=== PATIENT | female | born 1995 | race Caucasian/White ===

== ENCOUNTER 2024-07-07 11:10 | Inpatient (IN) ==
--- NOTE | 2024-07-07 11:25 | Emergency Department Note ---
Impression & Plan Starvation ketoacidosis, Nausea & vomiting, Unintentional weight loss, Cavernoma ED Provider Note CHIEF COMPLAINT: Nausea, weight loss HISTORY OF PRESENTING ILLNESS: This 28-year-old female patient presents to the emergency department with her mother for evaluation of nausea and weight loss. The patient states that she has daily nausea and has been unable to eat or drink. She has lost approximately 30 pounds in the past 3 weeks. She was diagnosed with COVID in late January and has had intermittent nausea since that time. However, the nausea has gotten much worse. Significantly increased symptoms over the past 2 weeks. She has had bilious vomiting as well. She denies any diarrhea. She denies any urinary symptoms. She denies any fevers, cough, or URI symptoms. Denies any head injury or trauma. The patient was seen by GI as an outpatient today and referred to the ER for admission. The patient's mother is a nurse and states that she has been giving her IV fluids at home the past couple days without improvement as well. She denies a history of previous GI problems. No previous abdominal surgeries. LMP 1 week ago. She denies concerns for and has had multiple negative tests recently. I reviewed the patient's GI office visit note from today. The patient has tried Zofran, Reglan, and Phenergan without improvement of her symptoms. GI was concerned about her nutritional status because of her lack of oral intake. The patient was sent to the ER for admission for observation, hydration, nutritional support, and to begin a diagnostic workup. Per the GI office visit note, the patient was seen at [facility] ER and had a noncontrast CT scan which was reported by the patient as normal. Apparently no blood work had been performed. The patient also tried a trial of [id number] antacids without relief. The patient states that she feels hungry, but is unable to eat or drink anything because of the nausea and vomiting. The patient states that she has not had any other workup performed other than the [facility] ER visit and outpatient ER visit. REVIEW OF SYSTEMS: See HPI for pertinent positives and pertinent negatives. ALLERGIES: Bupropion - nausea MEDICATIONS: None PAST MEDICAL HISTORY: Denies pertinent past medical or pertinent past surgical history other than the current symptoms. PHYSICAL EXAM: VITALS: Vitals are noted on the nurse's note and reviewed by myself. GENERAL: The patient is thin and almost cachectic appearing. She also appears nauseous, but non toxic, in no acute distress, non-diaphoretic. SKIN: Capillary refill <2 sec. EYES: Eyes are sunken. PERRLA. EOMI. Conjunctivae without injection, sclerae without icterus. NOSE: Patent without discharge. MOUTH: Mucous membranes dry. Uvula midline. Airway patent. NECK: Supple without nuchal rigidity. HEART: Regular rate and rhythm without murmurs gallops or rubs. LUNGS: Clear to auscultation bilaterally without wheezes, rales or rhonchi. No retractions or accessory muscle use. ABDOMEN: Positive bowel sounds x 4. Normal tympanic percussion. Soft, nontender to palpation. No masses or hepatosplenomegaly. Knight sign negative. No CVA tenderness. No guarding, rigidity, or rebound tenderness. No focal RLQ or LLQ tenderness. MUSCULOSKELETAL: No gross musculoskeletal defects. NEURO: Patient was alert and oriented. Normal mental status exam. No focal neurological deficits. DIFFERENTIAL DIAGNOSIS: Differential diagnosis includes malignancy, intracranial bleed, intracranial abnormality, parasite, celiac disease, hepatitis, pancreatitis, cholecystitis, cholelithiasis, appendicitis, kidney stone, pyelonephritis, UTI, gastritis, gastroenteritis, mesenteric adenitis, obstruction, constipation, hernia, abdominal abscess, perforation, diverticulitis, IBD, ischemic colitis, abdominal aortic aneurysm, , ectopic , ovarian cyst, ovarian torsion, acute salpingitis, or others. ED COURSE AND MEDICAL DECISION MAKING: HISTORY FROM INDEPENDENT HISTORIAN: Additional history obtained from the patient's mother MEDICATIONS GIVEN: Benadryl 25 mg IV, Reglan 10 mg IV, Pepcid 20 mg IV. 1.5 L normal saline solution bolus. GI cocktail. MONITOR: Continuous vitamin manager: Order was placed for continuous vitamin manager. Patient was placed on the vitamin manager and continuous pulse ox. Patient was noted to be in normal sinus rhythm at an initial rate of 70 bpm per my interpretation. EKG: EKG was interpreted by myself as normal sinus rhythm at 75 bpm with no acute ST or T wave changes. INTERPRETATION OF LABS: I interpreted the labs with full lab results as below in the lab section of this note. Laboratory results pertinent to the emergent complaint are discussed in the MDM section below. The patient was advised to follow up with their PCP and/or specialist(s) for further outpatient monitoring and management of any abnormal results. INTERPRETATION OF IMAGING: Imaging studies were interpreted by myself and read by radiology as per the imaging section of this note. The patient was advised to follow up with their PCP and/or specialist(s) for further outpatient management of any non-emergent abnormal findings. CT scan of the head without contrast showed no acute intracranial abnormality. 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 This could be confirmed with him nonemergent follow- up MRI of the brain with and without contrast. CT scan of the chest with IV contrast was negative for malignancy or other acute abnormalities. CT scan of the abdomen pelvis with IV contrast showed moderate fecal retention of the right hemicolon, but no other acute intra-abdominal or intrapelvic abnormality and no evidence of malignancy. EXTERNAL RECORDS REVIEWED: I reviewed the patient's outpatient GI office visit note from earlier today as summarized above. CONSULTATIONS: Dr. Mariscal of GI. On-call hospitalist. MDM SUMMARY: I examined the patient. The patient presents to the emergency department for evaluation of prolonged nausea and bilious vomiting as well as significant unintentional weight loss. The patient states that she had COVID in late January and has had intermittent nausea and vomiting since that time. However, over the past couple months the nausea and vomiting has gotten worse. Over the past 2 weeks she has been unable to keep anything down. She is lost approximately 30 pounds in the past 3 weeks per patient. The patient had a noncontrast CT scan at [facility] that was normal per patient. The patient denies any other formal outpatient workup of her symptoms. She saw GI as an outpatient today who referred her to the ER for further workup and admission. On exam the patient does appear nauseous, thin, and dehydrated. The patient's mother states that she has been giving her IV fluids at home since she is a nurse. Therefore, I only started with 500 mL normal saline solution bolus prior to obtaining workup results. An IV lock was placed and labs were drawn. White blood cell count normal at 4.89. Hemoglobin normal at 13.4. Platelet count normal at 273. PT/INR were normal. Sodium elevated at 147, chloride elevated at 117, bicarb low at 15, anion gap elevated at 15, albumin normal at 4.9, but globulin low at 2.1. Albumin/globulin ratio high at 2.3. CMP otherwise normal. Lipase normal. TSH normal. Magnesium normal. Phosphorus normal. Serum hCG negative. Urinalysis with 1+ protein and 4+ ketones, but no evidence for UTI. Lyme disease screen negative. CT scan of the head without contrast showed no acute intracranial abnormality. 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 This could be confirmed with him nonemergent follow-up MRI of the brain with and without contrast. CT scan of the chest with IV contrast was negative for malignancy or other acute abnormalities. CT scan of the abdomen pelvis with IV contrast showed moderate fecal retention of the right hemicolon, but no other acute intra-abdominal or intrapelvic abnormality and no evidence of malignancy. The patient is acidotic which is likely secondary to her dehydration and inability to eat. She has had significant nausea and vomiting as well as a significant unintentional weight loss. The patient only had minimal improvement of her symptoms with the above treatment. I spoke with Dr. Mariscal of GI and confirmed the recommendation for admission for further evaluation and treatment of this patient. I spoke with the on-call hospitalist who agreed to admit the patient for further evaluation and treatment. Please refer to their dictation for further details. The patient's care was transferred in stable condition. 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 Past Med/Surg History Problem List (Updated 07/07/24 @ 19:29 by Beth Mcclain PA-C) Cavernoma (Acute) Unintentional weight loss (Acute) Nausea & vomiting (Acute) Malnutrition Starvation ketoacidosis (Acute) Nausea [id number] condition Chronic rhinitis Acid reflux (Acute) Acne (Acute) Anxiety disorder (Acute) Depression (Acute) Vitamin D deficiency (Acute) Chest pressure Palpitations Surgical History History of wisdom tooth extraction History of adenoidectomy Family History Mother Anxiety Depression Diabetes Grandfather Cancer Asthma Grandfather Myocardial infarction Cardiac disorder Sister Asthma Family/Other Hypertension Cardiac disorder Social History Smoking Status: Former smoker Second Hand Exposure: No; Do You Dip or Chew Tobacco: No; Hx Alcohol Use: Yes Hx Substance Use: No Preferred Language: Sami marital status: Single Current Living Situation: Alone current occupational status: employed Feels Safe at Home: Yes Childhood Exposure to Second-Hand Smoke: Yes Diet: regular caffeine: Yes Dental Care, Regularly: Yes Physical Activity Frequency: Does not Exercise Seatbelt Use: always Sunscreen Use: Yes Assistive Devices: Glasses Allergies Allergies Allergy/AdvReac Type Severity Reaction Status Date / Time bupropion AdvReac Mild Nausea Verified 07/07/24 17:48 Home Meds Previous Rx's Medication Instructions Recorded azelastine 137 mcg (0.1 %) nasal 2 spray intranasal BID PRN nasal 12/31/23 spray congestion #30 mL fluticasone propionate 50 2 spray intranasal DAILY #16 grams 12/31/23 mcg/actuation nasal spray,suspension ipratropium bromide 21 mcg (0.03 2 spray intranasal TID PRN 12/31/23 %) nasal spray postnasal drip #30 mL promethazine 25 mg tablet 25 mg PO TID PRN nausea and 07/04/24 vomiting #30 tabs Results & Data (ED) Vital Signs Vital Signs - 24 hr 07/07/24 11:13 07/07/24 12:00 07/07/24 12:00 Temperature 36.7 C Temperature Source Oral Pulse Rate 85 82 Pulse Rate [Apical] 81 Pulse Rhythm [Apical] Regular Respiratory Rate 18 17 17 Respiratory Effort / Characteristics Non-Labored Spontaneous Non-Labored Spontaneous Respiratory Depth Normal Normal Respiratory Pattern Regular Blood Pressure 106/74 Blood Pressure [Left Arm] 147/83 H Blood Pressure Mean 84 Blood Pressure Mean [Left Arm] 104 Blood Pressure Position [Left Arm] Sitting Pulse Oximetry 97 100 100 Oxygen Delivery Method Room Air Room Air Room Air Sepsis Recent Fever Within 48 Hours No Sepsis New/Unexplained Change in Mental Status N/A Sepsis Action Taken by Nursing No Action Required 07/07/24 12:10 07/07/24 14:00 Temperature Temperature Source Pulse Rate 80 Pulse Rate [Apical] 92 H Pulse Rhythm [Apical] Respiratory Rate 18 Respiratory Effort / Characteristics Non-Labored Spontaneous Respiratory Depth Normal Respiratory Pattern Blood Pressure Blood Pressure [Left Arm] 108/82 Blood Pressure Mean Blood Pressure Mean [Left Arm] 90 Blood Pressure Position [Left Arm] Sitting Pulse Oximetry 99 Oxygen Delivery Method Room Air Sepsis Recent Fever Within 48 Hours Sepsis New/Unexplained Change in Mental Status Sepsis Action Taken by Nursing Laboratory Data 07/07/24 11:27 07/07/24 11:27 Lab Results 07/07/24 07/07/24 07/07/24 Range/Units 11:27 12:03 15:23 WBC 4.89 (4.8-10.8) K/ul RBC 4.44 (4.20-5.40) M/uL Hgb 13.4 (12.0-16.0) g/dl Hct 37.3 (37.0-47.0) % MCV 84.0 (80.0-100.0) fL MCH 30.2 (25.0-34.0) pg MCHC 35.9 (32.0-36.0) g/dL RDW Std Deviation 40.0 (36.4-46.3) fL RDW Coeff of Reuben 13.3 (11.5-14.5) % Plt Count 273 (130-400) K/uL MPV 10.4 (9.4-12.4) fL Immature Gran % (Auto) 0.2 % Neut % (Auto) 72.0 % Lymph % (Auto) 20.7 % [place] % (Auto) 6.7 % Eos % (Auto) 0.0 % Baso % (Auto) 0.4 % Neut # (Auto) 3.52 (1.40-6.50) K/uL Lymph # (Auto) 1.01 L (1.20-3.40) K/uL [place] # (Auto) 0.33 (0.11-0.59) K/uL Eos # (Auto) 0.00 (0.00-0.50) K/uL Baso # (Auto) 0.02 (0.00-0.20) K/uL Immature Gran # (Auto) 0.01 (0.01-0.20) K/uL PT 11.6 (9.0-12.0) Seconds INR 1.1 (0.9-1.1) VBG pH 7.28 L (7.36-7.41) VBG pCO2 24 L (38-50) mmHg VBG pO2 33 mmHg VBG HCO3 11 mmol/L VBG O2 Saturation < 60.0 % VBG Base Excess -13.6 mEq/L Sodium 147 H (136-145) mmol/L Potassium 3.5 (3.5-5.1) mmol/L Chloride 117 H (98-107) mmol/L Carbon Dioxide 15 L (21-32) mmol/L Anion Gap 15 H (3-11) BUN 8 (6-23) mg/dl Creatinine 0.61 (0.6-1.2) mg/dl Est Cr Clr Drug Dosing 124.3 ml/min eGFR 125.59 BUN/Creatinine Ratio 13.1 (10-20) Glucose 81 (70-99(Fasting)) mg/dl Calcium 9.4 (8.6-10.3) mg/dl Phosphorus 2.8 2.3 L (2.5-4.9) mg/dl Magnesium 2.0 (1.7-2.4) mg/dl Total Bilirubin 0.6 (0.2-1.0) mg/dl AST 13 (13-39) U/L ALT 15 (7-52) U/L Alkaline Phosphatase 40 (34-104) U/L Total Creatine Kinase 49 (26-192) U/L Troponin I High Sens < 2.3 (0-14) pg/ml Total Protein 7.0 (6.0-8.3) gm/dl Albumin 4.9 (3.4-5.0) gm/dl Globulin 2.1 L (2.5-4.0) gm/dl Albumin/Globulin Ratio 2.3 H (0.9-2) Lipase 49 (11-82) U/L TSH 0.612 (0.300-4.500) uIu/ml HCG, Qual Negative (Negative) Urine Color Yellow Urine Appearance Clear (Clear) Urine pH 6.0 (4.5-7.5) Ur Specific [place] 1.025 (1.000-1.030) Urine Protein 1+ H (Negative) Urine Glucose (UA) Negative (Negative) Urine Ketones 4+ H (Negative) Urine Blood Negative (Negative) Urine Nitrite Negative (Negative) Urine Bilirubin Negative (Negative) Urine Urobilinogen Negative (Negative) Ur Leukocyte Esterase Negative (Negative) Urine WBC (Auto) 0-5 (0-5) /hpf Urine RBC (Auto) 0-2 (0-2) /hpf U Hyaline Cast (Auto) 0-2 (0-2) /lpf U Epithel Cells (Auto) 6-10 H (0-2) /hpf Urine Bacteria (Auto) 1+ H (None Seen) Ur Random Creatinine 92.8 mg/dl Ur Random Sodium 166 mmol/L Lyme Disease Screen Negative (Negative) Administered Medications Dextrose/Lactated Ringer's (D5w And Lactated Ringers) 1,000 mls @ 125 mls/hr IV .Q8H BRITTON Stop: 07/08/24 18:44 Last Admin: 07/07/24 18:50 Dose: 125 mls/hr Documented By: SRL Discontinued Medications Al Hydrox/Mg Hydrox/Simethicone (Aluminum/Magnesium Susp 30 Ml Udc) 30 ml PO NOW STA Stop: 07/07/24 14:35 Last Admin: 07/07/24 14:52 Dose: 30 ml Documented By: MACK Diphenhydramine HCl (Diphenhydramine 50 Mg/Ml Vial) 25 mg IV NOW STA Stop: 07/07/24 11:35 Last Admin: 07/07/24 11:57 Dose: 25 mg Documented By: MACK Famotidine (Pepcid 20mg Iv Push) 20 mg in 5 mls @ 2.5 mls/min IV NOW STA Stop: 07/07/24 11:35 Last Admin: 07/07/24 11:57 Dose: 2.5 mls/min Documented By: MACK Sodium Chloride (Nss) 500 mls @ 999 mls/hr IV .Q31M ONE Stop: 07/07/24 12:04 Last Infusion: 07/07/24 13:19 Dose: Infused Documented By: Admin: 07/07/24 11:57 Dose: 999 mls/hr Documented By: AMS Sodium Chloride (Nss) 1,000 mls @ 999 mls/hr IV .Q1H1M ONE Stop: 07/07/24 15:07 Last Infusion: 07/07/24 15:59 Dose: Infused Documented By: Admin: 07/07/24 14:54 Dose: 999 mls/hr Documented By: MACK Thiamine HCl 300 mg/ Sodium (Chloride) 53 mls @ 210 mls/hr IV NOW STA Stop: 07/07/24 16:27 Last Infusion: 07/07/24 17:36 Dose: Infused Documented By: Admin: 07/07/24 17:15 Dose: 210 mls/hr Documented By: SRAnthony Potassium Phosphate 15 mmol/ (Sodium Chloride) 255 mls @ 88 mls/hr IV ONE ONE Stop: 07/07/24 19:08 Last Admin: 07/07/24 17:37 Dose: 88 mls/hr Documented By: SRAnthony Ioversol (Optiray 320 100ml) 94 ml IV ONCE ONE Stop: 07/07/24 13:45 Last Admin: 07/07/24 13:45 Dose: 94 ml Documented By: JP Metoclopramide HCl (Metoclopramide Hcl Inj 5 Mg/Ml 2 Ml Vial) 10 mg IV NOW STA Stop: 07/07/24 11:35 Last Admin: 07/07/24 11:57 Dose: 10 mg Documented By: MCAK Imaging Data Radiologist's Impression: Abdomen/Pelvis CT 07/07/24 11:[address] WITH IV CONTRAST CT DOSE: 1169.93 mGy.cm HISTORY: Acute generalized abdominal pain with nausea and vomiting Vomiting, significant unintentional weight loss TECHNIQUE: Multiaxial CT images of the abdomen and pelvis were performed following the IV administration of 94 cc of Optiray, A dose lowering technique was utilized adhering to the principles of ALARA. COMPARISON STUDY: Same day chest CT FINDINGS: The lung bases are clear. Minimal focal hepatic steatosis of the left hepatic antiphospholipid. Indeterminate 10 mm hypodense lesion of the right hepatic lobe, favored to be benign. Patency of the hepatic and portal veins. The spleen, gallbladder, pancreas, and adrenal glands are within normal limits. No hydronephrosis. 10 mm cyst of the anterior interpolar right kidney. No bowel wall thickening or obstruction. Moderate colonic fecal retention is most pronounced in the right hemicolon. Probable mild colonic diverticulosis without acute diverticulitis. The visualized appendix appears noninflamed. Unremarkable soft tissues. The pelvic organs are unremarkable. L2 vertebral body hemangioma. Mild levoscoliosis of the mid to lower thoracic spine. IMPRESSION: 1. No acute intra-abdominal or intrapelvic abnormality. 2. Moderate fecal retention of the right hemicolon. 3. No CT evidence of acute appendicitis. ACT 112: Negative or not required by law. The above report was generated using voice recognition software. It may contain grammatical, syntax or spelling errors. Electronically signed by: Kartik Beatty M.D. 07/07/2024 2:[address] 07/07/24 11:34 CT OF THE CHEST WITH IV CONTRAST CLINICAL HISTORY: Vomiting, significant unintentional weight loss. COMPARISON STUDY: No previous studies for comparison. TECHNIQUE: Following IV administration of 94 mL of Optiray, helical axial images of the chest were obtained. Sagittal and coronal reconstructions were viewed as well as maximal intensity projections on an independent 3-D workstation. Automated exposure control was utilized for the study. A dose lowering technique was utilized adhering to the principles of ALARA. FINDINGS: No enlarged axillary, mediastinal or hilar lymph nodes are present. Size of the heart is normal. There is no pericardial effusion. No pneumothorax or pleural effusion is present. There is no consolidation. There are no pulmonary nodules. Central airways are patent. No pulmonary emboli identified. There is no thoracic aortic dissection. The abdomen and pelvis CT will be reported separate. IMPRESSION: Unremarkable chest CT. ACT 112: Negative or not required by law. Electronically signed by: Epi Gastelum M.D. 07/07/2024 2:[address] 07/07/24 11:34 CT head/brain wo con CLINICAL HISTORY: 28 years-old Female with Vomiting, significant weight loss. Acute nausea with vomiting and weight loss TECHNIQUE: Multiple axial CT images of the head were obtained without contrast. A dose lowering technique was utilized adhering to the principles of ALARA. COMPARISON: None. FINDINGS: No acute intracranial hemorrhage, midline shift, hydrocephalus, territorial ischemia or abnormal extra-axial collection. Intra-axial hyperdense lesion within the left cerebrum, inferior lentiform nucleus distribution on image 13 series 2 measures 1.2 x 1.3 x 1.1 cm. No significant mass effect or adjacent vasogenic edema. The calvarium is intact. The paranasal sinuses, mastoid air cells, and middle ear cavities are clear. IMPRESSION: 1. No acute intracranial abnormality. 2. 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 This could be confirmed with a nonemergent follow-up MRI of the brain with and without IV contrast. ACT 112: Negative or not required by law. The above report was generated using voice recognition software. It may contain grammatical, syntax or spelling errors. Electronically signed by: Kartik Beatty M.D. 07/07/2024 2:08 PM Discharge Plan Visit Data Chief Complaint: GI Assessment Stated Complaint: REF BY GASTRO, WAS TOLD SHE WOULD BE ADMITTED ED Provider: Rick Prater ED Midlevel Provider: Beth Mcclain Discharge Problem: Starvation ketoacidosis, Nausea & vomiting, Unintentional weight loss, Cavernoma Patient Disposition: Admitted As Inpatient Condition: Fair Discharge Instructions Interventions: ED Discharge Assessment Last Done: 07/07/24 18:16 Discharge Problem: Nausea & vomiting Qualifiers: Vomiting type: bilious vomiting Qualified Code(s): R11.14 - Bilious vomiting
[2024-07-07] MEDS: FAMOTIDINE 20MG IV PUSH 20 MG/5 ML SYR IV STA (11:57)
[2024-07-07] MEDS: diphenhydrAMINE 50 MG/ML VIAL IV STA (11:57)
[2024-07-07] MEDS: METOCLOPRAMIDE HCL INJ 5 MG/ML 2 ML VIAL IV STA (11:57)
[2024-07-07] MEDS: SODIUM CHLORIDE 0.9% 500 ML IV ONE (11:57)
[2024-07-07 12:35] LABS: Basophils # (auto) 0.02 K/uL (0.00-0.20); Basophils % (auto) 0.4 %; Hematocrit (blood only) 37.3 % (37.0-47.0); Hemoglobin 13.4 g/dl (12.0-16.0); Immature Granulocytes # (auto) 0.01 K/uL (0.01-0.20); Immature Granulocytes % (auto) 0.2 %; Lymphocytes # (auto) 1.01 K/uL (1.20-3.40); Lymphocytes % (auto) 20.7 %; Mean Corpuscular Hemoglobin 30.2 pg (25.0-34.0); Mean Corpuscular Hgb Conc 35.9 g/dL (32.0-36.0); Mean Platelet Volume 10.4 fL (9.4-12.4); Monocytes # (auto) 0.33 K/uL (0.11-0.59); Monocytes % (auto) 6.7 %; Neutrophils # (auto) 3.52 K/uL (1.40-6.50); Platelet Count 273 K/uL (130-400); RDW Coefficient of Variation 13.3 % (11.5-14.5); Red Blood Count 4.44 M/uL (4.20-5.40); White Blood Count 4.89 K/ul (4.8-10.8)
[2024-07-07 12:45] LABS: Alanine Aminotransferase 15 U/L (7-52); Albumin Globulin Ratio 2.3 (0.9-2); Albumin Level 4.9 gm/dl (3.4-5.0); Alkaline Phosphatase 40 U/L (34-104); Anion Gap 15 (3-11); Aspartate Aminotransferase 13 U/L (13-39); BUN Creatinine Ratio 13.1 (10-20); Bilirubin,Total 0.6 mg/dl (0.2-1.0); Blood Urea Nitrogen 8 mg/dl (6-23); Calcium 9.4 mg/dl (8.6-10.3); Carbon Dioxide 15 mmol/L (21-32); Chloride 117 mmol/L (98-107); Creatinine Clr Calc Pharmacy 124.3 ml/min; Globulin 2.1 gm/dl (2.5-4.0); Glucose 81 mg/dl (70-99(Fasting)); Lipase 49 U/L (11-82); Phosphorus 2.8 mg/dl (2.5-4.9); Potassium 3.5 mmol/L (3.5-5.1); Sodium 147 mmol/L (136-145)
[2024-07-07 12:51] LABS: INR 1.1 (0.9-1.1); Prothrombin Time 11.6 Seconds (9.0-12.0); Troponin I High Sensitivity < 2.3 pg/ml (0-14)
[2024-07-07 12:57] LABS: Pregnancy Test, Serum Negative (Negative)
[2024-07-07 13:00] LABS: Thyroid Stimulating Hormone 0.612 uIu/ml (0.300-4.500)
[2024-07-07 13:40] LABS: Appearance Urine Clear (Clear); Bacteria Urine Automated 1+ (None Seen); Bilirubin Urine Negative (Negative); Blood Urine Negative (Negative); Cast Urine Automated 0-2 /lpf (0-2); Color Urine Yellow; Glucose Urine UA Negative (Negative); Ketones Urine 4+ (Negative); Leukocyte Esterase Urine Negative (Negative); Nitrite Urine Negative (Negative); Protein Urine 1+ (Negative); RBC Urine Automated 0-2 /hpf (0-2); Specific Gravity Urine 1.025 (1.000-1.030); Urobilinogen Urine Negative (Negative); WBC Urine Automated 0-5 /hpf (0-5)
[2024-07-07] MEDS: OPTIRAY 320 100ml IV ONE (13:45)
--- NOTE | 2024-07-07 14:10 | CT Scan Report ---
CT head/brain wo con CLINICAL HISTORY: 28 years-old Female with Vomiting, significant weight loss. Acute nausea with vomi ting and weight loss TECHNIQUE: Multiple axial CT images of the head were obtained without contrast. A dose lowering tech nique was utilized adhering to the principles of ALARA. COMPARISON: None. FINDINGS: No acute intracranial hemorrhage, midline shift, hydrocephalus, territorial ischemia or abnormal extr a-axial collection. Intra-axial hyperdense lesion within the left cerebrum, inferior lentiform nucleu s distribution on image 13 series 2 measures 1.2 x 1.3 x 1.1 cm. No significant mass effect or adjace nt vasogenic edema. The calvarium is intact. The paranasal sinuses, mastoid air cells, and middle ear cavities are clear . IMPRESSION: 1. No acute intracranial abnormality. 2. 1.3 cm intra-axial lesion of the left lentiform nuclear distribution favors a probable benign cave rnoma. This could be confirmed with a nonemergent follow-up MRI of the brain with and without IV cont rast. ACT 112: Negative or not required by law. The above report was generated using voice recognition software. It may contain grammatical, syntax o r spelling errors. Electronically signed by: Kartik Beatty M.D. 07/07/2024 2:08 PM
--- NOTE | 2024-07-07 14:16 | CT Scan Report ---
ABDOMEN AND PELVIS CT WITH IV CONTRAST CT DOSE: 1169.93 mGy.cm HISTORY: Acute generalized abdominal pain with nausea and vomiting Vomiting, significant unintention al weight loss TECHNIQUE: Multiaxial CT images of the abdomen and pelvis were performed following the IV administrat ion of 94 cc of Optiray, A dose lowering technique was utilized adhering to the principles of ALARA. COMPARISON STUDY: Same day chest CT FINDINGS: The lung bases are clear. Minimal focal hepatic steatosis of the left hepatic antiphospholi pid. Indeterminate 10 mm hypodense lesion of the right hepatic lobe, favored to be benign. Patency of the hepatic and portal veins. The spleen, gallbladder, pancreas, and adrenal glands are within hoda l limits. No hydronephrosis. 10 mm cyst of the anterior interpolar right kidney. No bowel wall thickening or ob struction. Moderate colonic fecal retention is most pronounced in the right hemicolon. Probable mild colonic diverticulosis without acute diverticulitis. The visualized appendix appears noninflamed. Unr emarkable soft tissues. The pelvic organs are unremarkable. L2 vertebral body hemangioma. Mild levosc oliosis of the mid to lower thoracic spine. IMPRESSION: 1. No acute intra-abdominal or intrapelvic abnormality. 2. Moderate fecal retention of the right hemicolon. 3. No CT evidence of acute appendicitis. ACT 112: Negative or not required by law. The above report was generated using voice recognition software. It may contain grammatical, syntax o r spelling errors. Electronically signed by: Kartik Beatty M.D. 07/07/2024 2:14 PM
--- NOTE | 2024-07-07 14:22 | CT Scan Report ---
CT OF THE CHEST WITH IV CONTRAST CLINICAL HISTORY: Vomiting, significant unintentional weight loss. COMPARISON STUDY: No previous studies for comparison. TECHNIQUE: Following IV administration of 94 mL of Optiray, helical axial images of the chest were o btained. Sagittal and coronal reconstructions were viewed as well as maximal intensity projections o n an independent 3-D workstation. Automated exposure control was utilized for the study. A dose low ering technique was utilized adhering to the principles of ALARA. FINDINGS: No enlarged axillary, mediastinal or hilar lymph nodes are present. Size of the heart is n ormal. There is no pericardial effusion. No pneumothorax or pleural effusion is present. There is no consolidation. There are no pulmonary nodules. Central airways are patent. No pulmonary emboli identi fied. There is no thoracic aortic dissection. The abdomen and pelvis CT will be reported separate. IMPRESSION: Unremarkable chest CT. ACT 112: Negative or not required by law. Electronically signed by: Epi Gastelum M.D. 07/07/2024 2:21 PM
[2024-07-07] MEDS: ALUMINUM/MAGNESIUM SUSP 30 ML UDC PO STA (14:52)
[2024-07-07] MEDS: SODIUM CHLORIDE 0.9% 1,000 ML IV ONE (14:54)
--- NOTE | 2024-07-07 15:29 | Electrocardiogram Report ---
Test Reason : Blood Pressure : */* mmHG Vent. Rate : 75 BPM Atrial Rate : 75 BPM P-R Int : 138 ms QRS Dur : 68 ms QT Int : 372 ms P-R-T Axes : 62 55 51 degrees QTcB Int : 415 ms Normal sinus rhythm Normal ECG No previous ECGs available Confirmed by Hussein Clements ([id number]) on 07/07/2024 3:29:07 PM Referred By: Confirmed By: Hussein Clements
[2024-07-07 15:34] LABS: Base Excess VBG -13.6 mEq/L; HCO3 VBG 11 mmol/L; Oxygen Saturation VBG < 60.0 %; PCO2 VBG 24 mmHg (38-50); PO2 VBG 33 mmHg; pH VBG 7.28 (7.36-7.41)
--- NOTE | 2024-07-07 15:47 | History & Physical Report ---
Date of Service July 07, 2024 Assessment & Plan (1) Starvation ketoacidosis: (2) Nausea: (3) Acid reflux: (4) Anxiety disorder: (5) Malnutrition: Plan Monika is a 28 y/o female with PMH of anxiety disorder here due to intractable nausea, weight loss and malnutrition. Malnutrition: Starvation ketoacidosis - Patient with 2 week of minimal po intake secondary to nausea and vomiting - No melena, no hematochezia. - Labs remarkable for anion prasad metabolic acidosis with PH 7.24 - Hypernatremia, hypophosphatemia - Cr. 0.62, TSH 0.612, normal liver function - Ketones on urine - Denied use of alcohol, marihuana or any other drugs - Patient placed on IV D5 +LR 125 ml /hr - no need of bicarb at this time - Dietitian consult place - IV thiamine - Ferritin, Iron, vitamin B12, vitamin D levels in the morning Refeeding syndrome - Clear diet for now - Then consider Regular diet, 700 kcal per day - Hypophosphatemia on admission - Replaced with 15 mmol - Labs BMP, Mag, Phosphorus Q4 Hrs when symptoms improve and patient resume diet - Replace as needed Mild hypernatremia - placed on D5 + LR - BMP q 4hrs Nausea: - unknown etiology, Post viral gastroparesis? - started after Covid 19 infection on January - Patient does refers GERD symptoms since a teenager, no outpatient workup - Abdomen CT: no acute intraabdominal abnormality, moderate fecal intention. - Head CT: 1.3 cm intra-axial lesion of the left lentiform nuclear distribution favors a probable benign cavernoma. This could be confirmed with a nonemergent follow-up MRI of the brain with and without IV contrast. - Chest CT: No enlarged axillary, mediastinal or hilar lymph nodes are present. no effusion, no consolidation, no pulmonary nodule - GI consulted aprec recommendations -continue IV Zofran and Reglan as needed - Protonix IV 20 mg - diet: clear diet now, NPO at midnight pending eval from GI and possible need for scoope - Maalox as needed Cavernoma: - Head CT: 1.3 cm benign cavernoma. consider non emergent MRI FEN: cleat diet, NPO at midnight Code status: full code DVT ppx: SCDs Dispo: med/surg with telemetry History of Present Illness Primary Care Provider: REAGAN Gaviria 28 y/o female with PMH of anxiety here due to malnutrition secondary to nausea an vomiting. Symptoms started after a Covid 19 on January. She had been having nausea most of the days, where she would tolerated crackles and michael ulices. She refers worsening symptoms in the last 2 weeks. States that had minimal to none PO intake in the last 2 weeks. Had lost 30 pounds on the last 3 months. Had tried Zofran, Phenergan and Reglan outpatient. Mom at bedside refers that the she got Iv fluid at home, placed by her mom which is a nurse. She refers having GERD symptoms since she's being a teenager no outpatient workup done. She does have noted abdominal pain / pressure that is worsen with hunger, that had been present since before the covid infection. Refers being constipated in the last 2 weeks. No difficult swallowing. Denied nay melena, or hematochezia. Denied any chills, fever, chest pain, dysuria, frequency, headaches or any other symptoms. Allergies Allergy/AdvReac Type Severity Reaction Status Date / Time bupropion AdvReac Mild Nausea Uncoded 07/07/24 10:08 Home Medications Medication Instructions Recorded Confirmed Type azelastine 137 mcg (0.1 %) nasal 2 spray intranasal BID PRN nasal 12/31/23 07/07/24 Rx spray congestion #30 mL fluticasone propionate 50 2 spray intranasal DAILY #16 grams 12/31/23 07/07/24 Rx mcg/actuation nasal spray,suspension ipratropium bromide 21 mcg (0.03 2 spray intranasal TID PRN 12/31/23 07/07/24 Rx %) nasal spray postnasal drip #30 mL promethazine 25 mg tablet 25 mg PO TID PRN nausea and 07/04/24 07/07/24 Rx vomiting #30 tabs Past Med/Surg History Problem List (Updated 07/07/24 @ 16:07 by Renate Diana MD) Malnutrition Starvation ketoacidosis Nausea [id number] condition Chronic rhinitis Acid reflux (Acute) Acne (Acute) Anxiety disorder (Acute) Depression (Acute) Vitamin D deficiency (Acute) Chest pressure Palpitations Surgical History History of wisdom tooth extraction History of adenoidectomy Family History Mother Anxiety Depression Diabetes Grandfather Cancer Asthma Grandfather Myocardial infarction Cardiac disorder Sister Asthma Family/Other Hypertension Cardiac disorder Social History Smoking Status: Former smoker Second Hand Exposure: No; Do You Dip or Chew Tobacco: No; Hx Alcohol Use: Yes Hx Substance Use: No Preferred Language: Uzbek marital status: Single Current Living Situation: Alone current occupational status: employed Feels Safe at Home: Yes Childhood Exposure to Second-Hand Smoke: Yes Diet: regular caffeine: Yes Dental Care, Regularly: Yes Physical Activity Frequency: Does not Exercise Seatbelt Use: always Sunscreen Use: Yes Assistive Devices: Glasses Review of Systems Review of Systems: as per HPI Physical Exam Constitutional: + thin and + malnourished; no acute dist ress and not lethargic ENMT: external ear and nose normal, oropharynx normal Respiratory: normal respiratory effort, lungs clear to auscultation Cardiovascular: RRR, no murmur, no edema Gastrointestinal (Abdomen): Inspection/Auscultation: abdomen normal to inspection and normal bowel sounds; abdomen not distended Percussi on/Palpation: + abdomen tender (Epigastric) Musculoskeletal: no cyanosis or clubbing, extremities motor strength 5/5 Skin: no rashes, warm and dry Results & Data Results & Data Vital Signs (Past 12 Hours) Vital Signs Temp Pulse Pulse Resp BP BP Pulse Ox 07/07/24 14:00 92 H 18 108/82 99 07/07/24 12:10 80 07/07/24 12:00 82 17 100 07/07/24 12:00 81 17 147/83 H 100 07/07/24 11:13 36.7 C 85 18 106/74 97 O2 Del Method 07/07/24 14:00 Room Air 07/07/24 12:10 07/07/24 12:00 Room Air 07/07/24 12:00 Room Air 07/07/24 11:13 Room Air Code Status & VTE Plan VTE Prophylaxis Plan VTE Prophylaxis will be ordered: Yes Supervising Physician Co-Signing Physician Notes Patient seen and examined, chart reviewed, case discussed with Dr. Elijah Diana MD and I agree with the assessment and plan as above except as otherwise noted Labs and images reviewed Monika is a 28-year-old female with hx of anxiety referred by GI for poor PO intake, nausea, and weight loss since COVID in Jan 2024. Nausea is not improved with zofran, reglan, PPI, H2. ~2-3 weeks ago was doing a little better and eating michael ulices and crackers, but again worsened over the last 2 weeks and cannot keep PO down. Due to significant weight loss and malnutirtion concerns was then referred to the ER. Mother is a nurse, pt was able to get 1L LR at home, but continues wiith poor intake. No diarrhea. +constipation. +nausea and vomiting, vomiting green emesis periodically ~1x/day No blood, no melena Mild epigastric TTP but no rebound/guarding Has a feeling of pressure/cramping in her abdomen No fevers, chills, sweats. some postnasal drip but otherwise no infectious sx Initially some improvement with Zofran, phenergan, H2 but this stopped working a few weeks ago. Some relief with reglan today No polyuria/dysuria. Urine is with evidence of some contamination (+epis and 1+ bacteria but no LE/nitrites) and without clinical UTI sx. History of GERD sx seen teens, but no prior hx of EGD/colonoscopy. No difficulty swallowing. No substance use. During ER evaluation - CT-A/P w/ con: R stool retention, no other acute findings - CT-H likely benign cavernoma, naf - CT-C: naf Malnutrition - 30lbs weight loss in prior 2 months - due to poor intake - Esophageal/gastric malignancy within differential although no obvious masses seen on CT - B12, folic, iron panel, ferritin pending - Phos low, repleted. Starvation ketosis with metabolic acidosis is present. No indication for bicarb at this time. - Sodium/chloride elevated likely from free water contraction and with starvation ketosis on admission. D5 LR ordered, clears encouraged, may switch to D5 half-normal saline with potassium needed for free water correction Nausea/vomiting evaluation as below Given very poor/low intake for several months patient is at risk of refeeding syndrome. Will continue clears and n.p.o. midnight pending GI evaluation and possible endoscopy however once diet is ready to be advanced would pursue refeeding precautions including initial kcal limit and subsequent advancement. Dietitian has been consulted. Thiamine IV supplementation 3 mg x 1 ordered and daily IV supplementation has been ordered. Can transition to p.o. once p.o. intake improves Chronic nausea/vomiting.? Postinfectious gastroparesis With some fecal retention however chronically poor intake for months with significant weight loss No difficulty swallowing/dysphagia or regurgitation but generally uncontrollable nausea for months No flushing or diarrhea to suggest carcinoid syndrome GI consulted for endoscopy evaluation. Did get some relief from Reglan. May trial prokinetics, trial erythromycin 3 times daily prior to meals Cavernoma - 1.3cm Noted on CT. May confirm non-emergently with MRI Agree with assessment management as noted above Resident Activity Tracking Resident Involvement: Resident Care Provided Care Provided: Adult Hospital Medicine
[2024-07-07 15:54] LABS: Phosphorus 2.3 mg/dl (2.5-4.9)
[2024-07-07] MEDS ORDERED: POTASSIUM PHOS 3 MMOL/1 ML INFUSION IV STA (16:01)
--- NOTE | 2024-07-07 16:08 | Billing Data ---
Date of Service July 07, 2024 Coding Level of Care Code 78888 INT INP/OBS CARE
[2024-07-07 16:24] LABS: Creatinine Urine Random 92.8 mg/dl
[2024-07-07] MEDS: THIAMINE HCL 300 MG in SODIUM CHLORIDE 0.9% 50 ML IV STA (17:15)
[2024-07-07] MEDS: POTASSIUM PHOSPHATE 15 MMOL in SODIUM CHLORIDE 0.9% 250 ML IV ONE (17:37)
[2024-07-07] MEDS ORDERED: PROMETHAZINE HCL 12.5 MG/10 ML UDP PO PRN (17:43)
[2024-07-07] MEDS ORDERED: ACETAMINOPHEN 325 MG TAB PO PRN (18:16)
[2024-07-07] MEDS ORDERED: PLASMA-LYTE A 1,000 ML IV SCH (18:16)
[2024-07-07] MEDS: D5W AND LACTATED RINGERS 1,000 ML IV SCH (18:50)
[2024-07-07] MEDS: ONDANSETRON INJ 2 MG/ML 2 ML VIAL IV PRN (19:23)
[2024-07-07 20:41] LABS: BUN Creatinine Ratio 10.6 (10-20); Calcium 7.6 mg/dl (8.6-10.3); Creatinine Clr Calc Pharmacy 161.3 ml/min; Magnesium 1.8 mg/dl (1.7-2.4); Phosphorus 2.6 mg/dl (2.5-4.9); Potassium 3.4 mmol/L (3.5-5.1)
[2024-07-07] MEDS: FAMOTIDINE 20MG IV PUSH 20 MG/5 ML SYR IV SCH (21:49)
[2024-07-08 01:17] LABS: BUN Creatinine Ratio 11.1 (10-20); Creatinine Clr Calc Pharmacy 134.9 ml/min; Magnesium 1.8 mg/dl (1.7-2.4); Phosphorus 2.4 mg/dl (2.5-4.9); Potassium 3.4 mmol/L (3.5-5.1)
[2024-07-08 06:23] LABS: Basophils # (auto) 0.02 K/uL (0.00-0.20); Basophils % (auto) 0.5 %; Eosinophils # (auto) 0.06 K/uL (0.00-0.50); Eosinophils % (auto) 1.4 %; Hematocrit (blood only) 30.2 % (37.0-47.0); Hemoglobin 10.9 g/dl (12.0-16.0); Immature Granulocytes # (auto) 0.01 K/uL (0.01-0.20); Immature Granulocytes % (auto) 0.2 %; Lymphocytes # (auto) 1.78 K/uL (1.20-3.40); Lymphocytes % (auto) 41.7 %; Mean Corpuscular Hemoglobin 29.4 pg (25.0-34.0); Mean Corpuscular Hgb Conc 36.1 g/dL (32.0-36.0); Mean Corpuscular Volume 81.4 fL (80.0-100.0); Mean Platelet Volume 9.9 fL (9.4-12.4); Neutrophils % (auto) 49.2 %; Platelet Count 196 K/uL (130-400); RDW Coefficient of Variation 13.2 % (11.5-14.5); RDW Standard Deviation 38.4 fL (36.4-46.3); Red Blood Count 3.71 M/uL (4.20-5.40); White Blood Count 4.27 K/ul (4.8-10.8)
[2024-07-08 06:48] LABS: Albumin Globulin Ratio 1.9 (0.9-2); Albumin Level 3.4 gm/dl (3.4-5.0); BUN Creatinine Ratio 10.8 (10-20); Bilirubin,Total 0.6 mg/dl (0.2-1.0); Calcium 8.1 mg/dl (8.6-10.3); Calcium 8.2 mg/dl (8.6-10.3); Globulin 1.8 gm/dl (2.5-4.0); Magnesium 1.6 mg/dl (1.7-2.4); Phosphorus 2.4 mg/dl (2.5-4.9); Potassium 2.7 mmol/L (3.5-5.1); Total Protein 5.2 gm/dl (6.0-8.3)
[2024-07-08 07:06] LABS: Ferritin 54.2 ng/ml (8-388)
[2024-07-08] MEDS: ALUMINUM/MAGNESIUM/SIMETH (MAALOX MAX) 30 ML UDC PO PRN (08:14)
[2024-07-08] MEDS: THIAMINE HCL 100 MG in SYRINGE 9 ML IV SCH (08:15)
[2024-07-08] MEDS: METOCLOPRAMIDE HCL INJ 5 MG/ML 2 ML VIAL IV PRN (08:15)
--- NOTE | 2024-07-08 08:19 | Hospitalist Progress Note ---
Date of Service July 08, 2024 Assessment & Plan (1) High anion gap metabolic acidosis: (2) Starvation ketoacidosis: (3) Nausea: (4) Acid reflux: (5) Anxiety disorder: (6) Malnutrition: Plan Monika is a 28 y/o female with PMHx of anxiety disorder here for evaluation of intractable nausea, weight loss, and malnutrition. Malnourishment #Starvation Ketosis #HAGMA Significant weight loss, electrolyte imbalances, and malnutrition admitted for management. No history of substance use. Ketosis without signs of hyperglycemia. HbA1c pending. Significant vitamin deficiencies as well. Monitor for signs of refeeding syndrome. Q4H BMP, AM Mg and Phos Dietitian consult - appreciate recs IV thiamine, replete lytes as indicated continue LR + D5 @ 125 mL #Nausea/Vomiting Etiology unclear - DDx including but not limited to post-viral gastroparesis, functional dyspepsia, GERD, oncologic process. Imaging without suspicious lymph nodes. Moderate stool burden present. GI consulted - appreciate recs. Ideally endoscopy to eval for PUD, oncologic process, gastritis, etc. Advance diet as tolerated after scope. GI consult - appreciate recs IV Zofran, Reglan, Maalox PRN IV Protonix and Pepcid can add Carafate if indicated Cavernoma: CT Head: 1.3 cm benign cavernoma. Recommend MRI - non-emergent FEN: NPO for scope, then advance diet as tolerated Code status: full code DVT ppx: SCDs Dispo: med/surg with telemetry Admission and Anticipated Discharge Date Admission Date: July 07, 2024 Supervising Physician Co-Signing Physician Notes I personally examined the patient and verified all garcia points of history and exam, discussed case, and agree with decision making with Dr Cyndi zarate. weight loss. food causes significant nausea. lots of weight loss. started post viral vitals noted nad heent nc at mmm abdominal wall trigger points noted L sided intractable nausea, severe protein calorie malnutrition with massive weight loss, hypomag/phos/K/D, insufficient B12 -functional dyspepsia > phantom pain from somatovisceral reflex from trigger points - likely both -->FD - discussed eating/mind body/chronic psychology approach; cyproheptadine (titrate up if not too sedated), bid pepcid/protonix for now (anticipate dropping to protonix only in a few days), ACHS [place] (and then possibly add carafate in between); once able to get OTC add FDGuard (clare/peppermint) -->trigger points - voltarel gel, inject continue IV fluids Subjective Patient seen at bedside this AM. Feeling somewhat better. Continued nausea/vomiting. Has not had a BM, but has not had much intake. No fevers or chills. No abdominal pain. No CP or SOB. Review of Systems Review of Systems: as per HPI Physical Exam Physical Exam: Gen: thin and chronically ill appearing patient in NAD HEENT: AT VT MMM Resp: CTAB no wheezing no increased work of breathing CV: RRR no m/r/g clinically well perfused Abd: soft, non-distended, little to no TTP MSK: no obvious deformities Skin: no rashes or bruising Neuro: alert and oriented Psych: appropriate mood and affect Results & Data Results & Data Vital Signs (Past 12 Hours) Vital Signs Temp Pulse Pulse Resp BP Pulse Ox O2 Del Method 07/08/24 07:45 36.9 C 16 106/71 98 Room Air 07/08/24 07:00 63 07/08/24 03:35 36.6 C 91 H 18 105/70 98 Room Air 07/07/24 22:11 67 07/07/24 21:30 79 07/07/24 21:28 36.7 C 77 12 105/73 98 Room Air Resident Activity Tracking Resident Involvement: Resident Care Provided Care Provided: Adult Hospital Medicine
[2024-07-08] MEDS ORDERED: POTASSIUM PHOS 3 MMOL/1 ML INFUSION IV STA (08:23)
[2024-07-08] MEDS: POTASSIUM PHOSPHATE 15 MMOL in SODIUM CHLORIDE 0.9% 250 ML IV ONE (08:51)
--- NOTE | 2024-07-08 10:03 | Gastrointestinal Consultation ---
Date of Consultation July 08, 2024 Assessment & Plan (1) Nausea & vomiting: (2) Unintentional weight loss: Plan -Keep NPO for EGD today as long as her K has been addressed/acidosis is adequately addressed -IV PPI BID -Antiemetics prn -Celiac panel sent out -Obtain AM cortisol -Hospitalist work-up to rule out other causes such as DM1 -Further recommendations pending results of EGD Supervising Physician Co-Signing Physician Notes Severe nausea vomiting 30+ weight loss following COVID infection. No hematemesis. Minimal GI symptoms prior to the COVID infection. Mother states she would get occasional heartburn indigestion no previous endoscopies. Patient came in with ketosis likely starvation ketosis. This is improved by IV dextrose for EGD today to evaluate for evidence of gastric outlet obstruction or channel obstruction celiac disease large hiatal hernia or other thing that could present with persistent nausea and vomiting. Risks and benefits explained informed consent obtained. Will proceed with this exam today. Potassium has been corrected to 3.3 History of Present Illness Reason for Consultation: Nausea, vomiting, weight loss Attending Physician: Antoine Wray DO History of Present Illness 28 year old female with history anxiety, depression seen in the outpatient GI clinic on 07/07/24 for evaluation of nausea. Reportedly symptom onset was after COVID infection in Fall 2023. Prior to COVID infection in January, from a GI standpoint she had felt well. She developed post-prandially nausea in January. She recalls feeling nauseated most days. Initially she made some dietary changes (focused on bland diet) and her symptoms started to improve. Mid March her post-prandially nausea returned and she suggests over the last three weeks symptoms have been severe. Reports intermittent generalized abd pain explained as squeezing sensation. She had been tolerating small volume liquids (1-2 bottles of gatorade or water) but over the last week her symptoms acute worsened. Endorses severe nausea w/ vomiting. Zofran, Phenergan and Reglan have not been helpful. Suggests that since Thursday she has not been able to tolerate any oral intake at all. She has been relying on IV fluids. Was seen in [facility] ED - had a noncontrast CT which she tells me was reported as normal. No labs were drawn. Suggests since the ED visit her symptoms have worsened. Persistent bilious emesis. No black or bloody emesis. No GERD symptoms but did attempt trial of OTC antacids w/o relief. She is hungry. She never had diarrhea associated w/ her symptoms. She has had infrequent bowel movements which she related to her limited oral intake. No black or bloody stools. She has weight loss of 35 lbs - mom notes that the 30 lbs of this has been since May. No fever, chills, CP, SOB. Has been attempting Phenergan. Throws this up. She did try dissolvable Zofran without improvement. Reglan did not help. Antacids did not help. She was sent to the ED due to poor po intake and concern for dehydration. She had an unremarkable CT abd/pelvis. She was noted to be acidotic. She has had elevated blood glucose readings. She is not vomiting since admission. She is being managed on IV fluids. K 2.7. BUN/Cr 4/0.37. AST 10, ALT 10, Alk phos 31. Allergies Allergy/AdvReac Type Severity Reaction Status Date / Time bupropion AdvReac Mild Nausea Verified 07/08/24 15:31 Home Medications Medication Instructions Recorded Confirmed Type azelastine 137 mcg (0.1 %) nasal 2 spray intranasal BID PRN nasal 12/31/23 07/07/24 Rx spray congestion #30 mL fluticasone propionate 50 2 spray intranasal DAILY #16 grams 12/31/23 07/07/24 Rx mcg/actuation nasal spray,suspension ipratropium bromide 21 mcg (0.03 2 spray intranasal TID PRN 12/31/23 07/07/24 Rx %) nasal spray postnasal drip #30 mL promethazine 25 mg tablet 25 mg PO TID PRN nausea and 07/04/24 07/07/24 Rx vomiting #30 tabs Patient History Surgical History History of wisdom tooth extraction History of adenoidectomy Family History Mother Anxiety Depression Diabetes Grandfather Cancer Asthma Grandfather Myocardial infarction Cardiac disorder Sister Asthma Family/Other Hypertension Cardiac disorder Social History Smoking Status: Never smoker Second Hand Exposure: No; Do You Dip or Chew Tobacco: No; Hx Alcohol Use: Yes Alcohol type: wine Hx Substance Use: No Preferred Language: Lebanese Communication Ability: Effective Dental Therapist Required: No Beliefs That Will Affect Care: None marital status: Single Current Living Situation: Alone and Family current occupational status: employed Feels Safe at Home: Yes Childhood Exposure to Second-Hand Smoke: Yes Diet: regular caffeine: Yes Dental Care, Regularly: Yes Physical Activity Frequency: Does not Exercise Seatbelt Use: always Sunscreen Use: Yes Assistive Devices: None Review of Systems Constitutional: no weight loss Gastrointestinal: + nausea; no abdominal pain and no vomit ing Psychiatric: + depression and + anxiety Physical Exam Constitutional: well developed Respiratory: normal respiratory effort Cardiovascular: Rate/Rhythm: regular rate Gastrointestinal (Abdomen): Inspection/Auscultation: abdomen normal to inspection Psychiatric: Orientation: alert and oriented x 3 Results & Data Vital Signs (Past 12 Hours) Vital Signs Temp Pulse Pulse Resp BP Pulse Ox O2 Del Method 07/08/24 07:45 36.9 C 16 106/71 98 Room Air 07/08/24 07:00 63 07/08/24 03:35 36.6 C 91 H 18 105/70 98 Room Air 07/07/24 22:11 67 PG Care Time/CCT Total # of Minutes Spent Total Time Spent with Patient: Total time spent is greater than 50% in coordination of care (as documented) at patient's floor/unit and/or counseling patient: Coding Level of Care Code 45568 IN/OBS CONSULT LVL 4,60M Diagnoses Nausea & vomiting R11.14 Vomiting type: bilious vomiting Unintentional weight loss R63.4 (1) Nausea & vomiting Vomiting type: bilious vomiting Qualified Code(s): R11.14 - Bilious vomiting
[2024-07-08 10:57] LABS: Creatinine Clr Calc Pharmacy 151.7 ml/min; Magnesium 1.5 mg/dl (1.7-2.4); Phosphorus 2.4 mg/dl (2.5-4.9); Potassium 2.8 mmol/L (3.5-5.1)
--- NOTE | 2024-07-08 11:07 | Anesthesiology Consultation ---
Date of Service July 08, 2024 Assessment & Plan (1) Encounter for pre-operative examination: Chart Review Chart Review: Acceptable Risk for Surgery, Patient NOT seen in Pre Admission Testing and store consultant initiated Consults Requested none Proposed Anesthesia Anesthesia Type: MAC History Surgery Operation Date: 07/08/24 16:45 Proposed Procedures p Esophagogastroduodenoscopy Dr. Davey Mariscal MD Height/Weight Height: 5 ft Weight: 45.8 kg Allergies Allergy/AdvReac Type Severity Reaction Status Date / Time bupropion AdvReac Mild Nausea Verified 07/07/24 17:48 Medications Home Medications Medication Instructions Recorded Confirmed Last Taken azelastine 137 mcg (0.1 %) nasal 2 spray intranasal BID PRN nasal 12/31/23 07/07/24 Unknown spray congestion #30 mL fluticasone propionate 50 2 spray intranasal DAILY #16 grams 12/31/23 07/07/24 Unknown mcg/actuation nasal spray,suspension ipratropium bromide 21 mcg (0.03 2 spray intranasal TID PRN 12/31/23 07/07/24 Unknown %) nasal spray postnasal drip #30 mL promethazine 25 mg tablet 25 mg PO TID PRN nausea and 07/04/24 07/07/24 07/07/24 04:00 vomiting #30 tabs Active Medications Generic Name Dose Route Start Last Admin Trade Name Freq PRN Reason Stop Dose Admin Al Hydrox/Mg Hydrox/Simethicone 15 ml 07/07/24 18:16 07/08/24 08:14 Aluminum/Magnesium/Simeth (Maalox Max) 30 Ml Udc PO 08/06/24 18:15 15 ml Q6H PRN Administration GERD Famotidine 20 mg in 5 mls @ 2.5 mls/min 07/07/24 22:00 07/08/24 08:15 Pepcid 20mg Iv Push IV 08/06/24 21:59 2.5 mls/min Q12 BRITTON Administration Dextrose/Lactated Ringer's 1,000 mls @ 125 mls/hr 07/07/24 18:45 07/08/24 08:54 D5w And Lactated Ringers IV 07/08/24 18:44 125 mls/hr .Q8H BRITTON Administration Thiamine HCl 100 mg/ Syringe 10 mls @ 2 mls/min 07/08/24 09:00 07/08/24 08:15 IV 08/07/24 08:59 2 mls/min QAM BRITTON Administration Potassium Phosphate 15 mmol/ 255 mls @ 88 mls/hr 07/08/24 08:30 07/08/24 08:51 Sodium Chloride IV 07/08/24 11:23 88 mls/hr ONE ONE Administration Metoclopramide HCl 10 mg 07/07/24 17:43 07/08/24 08:15 Metoclopramide Hcl Inj 5 Mg/Ml 2 Ml Vial IV 08/06/24 17:42 10 mg Q6H PRN Administration Nausea, 2nd line Ondansetron HCl 4 mg 07/07/24 17:43 07/08/24 06:20 Ondansetron Inj 2 Mg/Ml 2 Ml Vial IV 08/06/24 17:42 4 mg Q6H PRN Administration Nausea And Vomiting, 1st line Past Family History Family History Mother Anxiety Depression Diabetes Grandfather Cancer Asthma Grandfather Myocardial infarction Cardiac disorder Sister Asthma Family/Other Hypertension Cardiac disorder Past Surgical History Surgical History History of wisdom tooth extraction History of adenoidectomy Social History Smoking Status: Never smoker Do You Dip or Chew Tobacco: No Hx Alcohol Use: Yes Alcohol type: wine alcohol intake frequency: holidays/special occasions only Hx Substance Use: No substance use type: does not use Physical Exam Vital Signs Last Vital Signs Temp 36.9 C 07/08/24 07:45 Pulse 63 07/08/24 07:00 Resp 16 07/08/24 07:45 BP 106/71 07/08/24 07:45 Pulse Ox 98 07/08/24 07:45 O2 Del Method Room Air 07/08/24 07:45 Testing Laboratory Results 07/08/24 05:59 07/08/24 09:35 PT 11.6 Seconds (9.0-12.0) 07/07/24 11:27 INR 1.1 (0.9-1.1) 07/07/24 11:27 Urine Color Yellow 07/07/24 12:03 Urine Appearance Clear (Clear) 07/07/24 12:03 Urine pH 6.0 (4.5-7.5) 07/07/24 12:03 Ur Specific [place] 1.025 (1.000-1.030) 07/07/24 12:03 Urine Protein 1+ (Negative) H 07/07/24 12:03 Urine Glucose (UA) Negative (Negative) 07/07/24 12:03 Urine Ketones 4+ (Negative) H 07/07/24 12:03 Urine Nitrite Negative (Negative) 07/07/24 12:03 Ur Leukocyte Esterase Negative (Negative) 07/07/24 12:03 Urine WBC (Auto) 0-5 /hpf (0-5) 07/07/24 12:03 Urine RBC (Auto) 0-2 /hpf (0-2) 07/07/24 12:03 U Hyaline Cast (Auto) 0-2 /lpf (0-2) 07/07/24 12:03 U Epithel Cells (Auto) 6-10 /hpf (0-2) H 07/07/24 12:03 Urine Bacteria (Auto) 1+ (None Seen) H 07/07/24 12:03 Electrocardiogram Date: 07/07/24 Test Reason : Blood Pressure : */* mmHG Vent. Rate : 75 BPM Atrial Rate : 75 BPM P-R Int : 138 ms QRS Dur : 68 ms QT Int : 372 ms P-R-T Axes : 62 55 51 degrees QTcB Int : 415 ms Normal sinus rhythm Normal ECG No previous ECGs available
[2024-07-08] MEDS: MAGNESIUM SULFATE / D5W 1 GM/100 ML BAG IV SCH (11:57)
[2024-07-08] MEDS: POTASSIUM CHLORIDE / WTR 10 MEQ/100 ML PLCT IV SCH ×2 (11:58→18:38)
[2024-07-08 12:02] LABS: Estimated Average Glucose 88 mg/dl; Hemoglobin A1C 4.7 % (4.5-5.6)
[2024-07-08 15:14] LABS: BUN Creatinine Ratio 7.3 (10-20); Potassium 3.3 mmol/L (3.5-5.1)
[2024-07-08] MEDS ORDERED: ATROPINE SULFATE 0.1 MG/ML 10ML SYR IV PRN (15:50)
[2024-07-08] MEDS ORDERED: ePHEDrine sulfate 50 MG/ML AMP IV PRN (15:50)
--- NOTE | 2024-07-08 16:39 | Communication Note ---
Date of Service: July 08, 2024 EGD No cause for symptoms. No gastric outlet obstruction. No duodenal ulcer no signs of celiac disease. No changes of EOE. There were a few gastric erosions which could represent occasional NSAID use. Though these would not be the cause of her presentation. We did do biopsies exclude H. pylori. Correction of ketosis advance diet as tolerated. Zofran for nausea and vomiting.
--- NOTE | 2024-07-08 16:43 | GI REPORT ---
[facility] Patient: MARIAJOSE COTTER : 1995 Sex at : Female Age: 28 Years Procedure: Upper GI endoscopy Date: 07/08/2024 Attending Physician: Isidoro Mariscal MD Referring MD: Aleta Riley NP; Antoine Wray Indications: - Nausea vomiting weight loss Medications: - Monitored Anesthesia Care Complications: - No immediate complications. Estimated Blood Loss: - Estimated blood loss was minimal. Procedure: - The egd scope was introduced through the mouth and advanced to the third part of the duodenum. - The upper GI endoscopy was accomplished without difficulty. - The patient tolerated the procedure well. Findings: - The examined esophagus was normal. - Scattered mild inflammation characterized by erosions was found in the gastric antrum. Biopsies were taken with a cold forceps for histology. - The examined duodenum was normal. Impression: - Normal esophagus. - Gastritis, characterized by erosions. Biopsied. - Normal examined duodenum. - No cause for symptoms noted upper GI. Biopsy for erosions of likely represent aspirin or NSAID use. Rule out H. pylori Recommendation: Procedure Code(s): - 16962, Esophagogastroduodenoscopy, flexible, transoral; with biopsy, single or multiple Diagnosis Code(s): - K29.70, Gastritis, unspecified, without bleeding CPT(R) - 2023 copyright [employer]. All Rights Reserved. The CPT codes, CCI edits and ICD codes generated are intended as suggestions and were generated based on input data. These codes are preliminary and upon cpc coder review may be revised to meet current compliance and payer requirements. The provider is responsible for the final determination of appropriate codes, and modifiers. Isidoro Mariscal MD This document has been electronically signed. Note Initiated:07/08/2024 Note Completed:07/08/2024 4:42 PM [email or web address]\[id number]
--- NOTE | 2024-07-08 16:47 | Anesthesiology Progress Note ---
Date of Service July 08, 2024 Anesthesia Post Procedure Vital Signs Vital Signs: Temp Pulse Pulse Pulse Resp BP Pulse Ox 07/08/24 15:31 37.0 C 83 16 135/97 98 07/08/24 15:00 80 07/08/24 11:39 37.1 C 98 H 16 107/69 99 07/08/24 07:45 36.9 C 16 106/71 98 07/08/24 07:00 63 07/08/24 03:35 36.6 C 91 H 18 105/70 98 07/07/24 22:11 67 07/07/24 21:30 79 07/07/24 21:28 36.7 C 77 12 105/73 98 07/07/24 18:59 78 18 111/71 100 07/07/24 18:59 Pulse Ox O2 Del Method O2 Del Method 07/08/24 15:31 Room Air 07/08/24 15:00 07/08/24 11:39 Room Air 07/08/24 07:45 Room Air 07/08/24 07:00 07/08/24 03:35 Room Air 07/07/24 22:11 07/07/24 21:30 07/07/24 21:28 Room Air 07/07/24 18:59 Room Air 07/07/24 18:59 100 Room Air Transfer of Care Handoff Completed per policy Notes Mental Status: alert / awake / arousable Patient Amnestic to Procedure: Yes Nausea / Vomiting: adequately controlled Pain: adequately controlled Airway Patency, RR, SpO2: stable & adequate BP & HR: stable & adequate Hydration State: stable & adequate Anesthetic Complications: no major complications apparent
[2024-07-08] MEDS: LIDOCAINE 2% 2 ML VIAL/AMP(20MG/ML) INFIL ONE (17:39)
[2024-07-08] MEDS: PROPOFOL IV EMULSION 10 MG/ML 20 ML VIAL IV ONE (17:39)
[2024-07-08] MEDS: D5W AND LACTATED RINGERS 1,000 ML IV SCH (18:38)
--- NOTE | 2024-07-08 18:58 | Billing Data ---
Date of Service July 08, 2024 Coding Level of Care Code 12130 SUB INP/OBS CARE 3MIN
[2024-07-08] MEDS: ALUMINUM/MAGNESIUM/SIMETH (MAALOX MAX) 30 ML UDC PO STA (19:47)
[2024-07-08] MEDS: CYPROHEPTADINE HCL 4 MG TAB PO SCH (19:48)
[2024-07-08] MEDS: ALUMINUM/MAGNESIUM/SIMETH (MAALOX MAX) 30 ML UDC PO SCH (20:20)
[2024-07-08] MEDS: DICLOFENAC SOD 1% GEL 100 GM TUBE EXT SCH (20:21)
[2024-07-08] MEDS: PANTOprazole 40 MG/10 ML SYR IV SCH (20:22)
[2024-07-09 01:18] LABS: BUN Creatinine Ratio 4.8 (10-20); Calcium 7.8 mg/dl (8.6-10.3); Creatinine Clr Calc Pharmacy 144.5 ml/min; Potassium 2.8 mmol/L (3.5-5.1)
[2024-07-09] MEDS: POTASSIUM CHLORIDE / WTR 10 MEQ/100 ML PLCT IV SCH (02:00)
[2024-07-09 03:49] LABS: Hematocrit (blood only) 29.6 % (37.0-47.0); Hemoglobin 10.7 g/dl (12.0-16.0); Mean Corpuscular Hemoglobin 29.5 pg (25.0-34.0); Mean Corpuscular Hgb Conc 36.1 g/dL (32.0-36.0); Mean Corpuscular Volume 81.5 fL (80.0-100.0); Mean Platelet Volume 10.2 fL (9.4-12.4); Platelet Count 195 K/uL (130-400); RDW Coefficient of Variation 12.6 % (11.5-14.5); RDW Standard Deviation 36.5 fL (36.4-46.3); Red Blood Count 3.63 M/uL (4.20-5.40); White Blood Count 4.62 K/ul (4.8-10.8)
[2024-07-09 04:07] LABS: Basophils # (auto) 0.02 K/uL (0.00-0.20); Basophils % (auto) 0.4 %; Eosinophils % (auto) 2.2 %; Immature Granulocytes # (auto) 0.01 K/uL (0.01-0.20); Immature Granulocytes % (auto) 0.2 %; Lymphocytes # (auto) 2.37 K/uL (1.20-3.40); Lymphocytes % (auto) 51.3 %; Monocytes # (auto) 0.38 K/uL (0.11-0.59); Monocytes % (auto) 8.2 %; Neutrophils # (auto) 1.74 K/uL (1.40-6.50); Neutrophils % (auto) 37.7 %
[2024-07-09 04:09] LABS: BUN Creatinine Ratio 4.5 (10-20); Creatinine Clr Calc Pharmacy 137.9 ml/min; Potassium 3.1 mmol/L (3.5-5.1)
[2024-07-09 04:11] LABS: Albumin Globulin Ratio 2.3 (0.9-2); Albumin Level 3.2 gm/dl (3.4-5.0); BUN Creatinine Ratio 4.5 (10-20); Bilirubin,Total 0.6 mg/dl (0.2-1.0); Calcium 7.9 mg/dl (8.6-10.3); Creatinine Clr Calc Pharmacy 137.9 ml/min; Globulin 1.4 gm/dl (2.5-4.0); Potassium 3.1 mmol/L (3.5-5.1); Total Protein 4.6 gm/dl (6.0-8.3)
--- NOTE | 2024-07-09 07:36 | Hospitalist Progress Note ---
Date of Service July 09, 2024 Assessment & Plan (1) High anion gap metabolic acidosis: (2) Starvation ketoacidosis: (3) Nausea: (4) Acid reflux: (5) Anxiety disorder: (6) Malnutrition: Plan Monika is a 28 y/o female with PMHx of anxiety disorder here for evaluation of intractable nausea, weight loss, and malnutrition. Malnourishment #Starvation Ketosis #HAGMA Significant weight loss, electrolyte imbalances, and malnutrition admitted for management. No history of substance use. Ketosis without signs of hyperglycemia. HbA1c pending. Significant vitamin deficiencies as well. Monitor for signs of refeeding syndrome. BMP, AM Mg and Phos Dietitian consult - appreciate recs Not tolerating IV thiamine-> convert to PO, replete lytes as indicated #Nausea/Vomiting Etiology unclear - DDx including but not limited to post-viral gastroparesis, functional dyspepsia, GERD, gastritis. Moderate stool burden present. GI consulted - appreciate recs. EGD with gastritis, but otherwise unremarkable GI consult - appreciate recs IV Zofran, Reglan, Phenergan PRN Maalox ACHS, Voltaren QID for abdominal trigger points, cyproheptadine QID, Carafate QID IV Protonix and Pepcid Inject abdominal trigger points if pt amenable Cavernoma: CT Head: 1.3 cm benign cavernoma. Recommend MRI - non-emergent FEN: advance diet as tolerated Code status: full code DVT ppx: SCDs Dispo: med/surg with telemetry Admission and Anticipated Discharge Date Admission Date: July 07, 2024 Supervising Physician Co-Signing Physician Notes I personally examined the patient and verified all garcia points of history and exam, discussed case, and agree with decision making with Dr Nuno zarate. trying to eat but not going great. expressed good understanding of dxs and plans vitals noted nad heent nc at mmm breathing unlabored no accessory muscles good effort skin no rashes no pallor or icterus intractable nausea, severe protein calorie malnutrition with massive weight loss, hypomag/phos/K/D, insufficient B12 -functional dyspepsia > phantom pain from somatovisceral reflex from trigger points - likely both -->FD - again discussed eating/mind body/chronic psychology approach (discussed biofeedback is available locally even if true chronic disease/GI psychologi is not); cyproheptadine (titrate up to QID), bid pepcid/protonix for now (anticipate dropping to protonix only in a few days), ACHS mylanta (add carafate in between); once able to get OTC add FDGuard (clare/peppermint) -->trigger points - voltarel gel, inject later today continue IV fluids, start B12/vitamin D CT head findings almost certainly benign but will want to get MRI for clarity prior to dc Subjective Pt seen at bedside qAM. Overall unsure if feeling better or not. Denies vomiting, still some nasuea. Anxious about eating and further vomiting. Couple bites of food this morning/sips of water. Denies abdominal pain. Review of Systems Review of Systems: As per above Physical Exam Physical Exam: Constitutional: well-appearing, no acute distress HEENT: NCAT, no conjunctival injection CV: regular rhythm, no murmur appreciated, extremities well-perfused, no LE edema Resp: CTABL, no wheezes/rales/rhonchi appreciated, no increased work of breathing GI: soft, nondistended, nontender MSK: no gross deformities appreciated Skin: warm, dry, no rash appreciated Neuro: alert, oriented, no focal neurologic deficit appreciated Results & Data Results & Data Vital Signs (Past 12 Hours) Vital Signs Temp Pulse Pulse Resp BP Pulse Ox O2 Del Method 07/09/24 07:00 68 07/09/24 04:01 36.3 C L 83 18 100/68 96 Room Air 07/09/24 00:30 36.6 C 90 18 125/74 97 Room Air 07/08/24 21:48 72 07/08/24 20:15 36.7 C 83 18 107/76 99 Room Air Resident Activity Tracking Resident Involvement: Resident Care Provided Care Provided: Adult Hospital Medicine
[2024-07-09] MEDS ORDERED: POTASSIUM CHLORIDE / WTR 10 MEQ/100 ML PLCT IV SCH (07:45)
[2024-07-09 08:42] LABS: BUN Creatinine Ratio 4.4 (10-20); Calcium 8.4 mg/dl (8.6-10.3); Creatinine Clr Calc Pharmacy 134.6 ml/min; Potassium 3.4 mmol/L (3.5-5.1)
--- NOTE | 2024-07-09 10:35 | Billing Data ---
Date of Service July 09, 2024 Coding Level of Care Code 89535 SUB INP/OBS CARE 3MIN
--- NOTE | 2024-07-09 11:28 | Gastroenterology Progress Note ---
Date of Service July 09, 2024 Assessment & Plan (1) Starvation ketoacidosis: Plan: Post COVID lack of p.o. nausea and vomiting. Development of starvation ketosis may have propagated ongoing symptoms. Clinically improved. No luminal or endoscopic cause for symptoms. Few blood outstanding as noted above. Continue current management. (2) High anion gap metabolic acidosis: (3) Nausea & vomiting: Admission and Anticipated Discharge Date Admission Date: July 07, 2024 Subjective Nausea vomiting, ketosis Ketosis peers of resolved. Patient did tolerate small amount of p.o. today. No vomiting. Outstanding labs include celiac testing, hemoglobin A1c, cortisol levels and her gastric biopsies. There were a few erosions in the stomach I believe these are NSAID related and not her cause of her symptoms. Physical Exam Physical Exam: Patient appears pleasant no acute distress. She was sleeping arouses to voice. Mother at the bedside. No vomiting. She is smiling. Abdomen benign Results & Data Results & Data Vital Signs (Past 12 Hours) Vital Signs Temp Pulse Pulse Resp BP Pulse Ox O2 Del Method 07/09/24 07:55 36.8 C 87 18 103/67 98 Room Air 07/09/24 07:00 68 07/09/24 04:01 36.3 C L 83 18 100/68 96 Room Air 07/09/24 00:30 36.6 C 90 18 125/74 97 Room Air Laboratory Results Hemoglobin and white count stable. Potassium 3.4. Anion gap acidosis resolved. Fasting blood sugar 94 today PG Care Time/CCT Total # of Minutes Spent Total Time Spent with Patient: Total time spent is greater than 50% in coordination of care (as documented) at patient's floor/unit and/or counseling patient: Coding Level of Care Code 96034 SUB INP/OBS CARE 06/18MIN Diagnoses Starvation ketoacidosis T73.0XXA; E87.29 High anion gap metabolic acidosis E87.29 Nausea & vomiting R11.14 Vomiting type: bilious vomiting (3) Nausea & vomiting Vomiting type: bilious vomiting Qualified Code(s): R11.14 - Bilious vomiting
[2024-07-09] MEDS: CYPROHEPTADINE HCL 4 MG TAB PO SCH (12:12)
[2024-07-09] MEDS: LIDOCAINE 4% CREAM 15 GM TUBE EXT ONE (12:12)
[2024-07-09 12:55] LABS: BUN Creatinine Ratio 6.4 (10-20); Calcium 8.5 mg/dl (8.6-10.3); Creatinine Clr Calc Pharmacy 128.9 ml/min; Potassium 3.7 mmol/L (3.5-5.1)
[2024-07-09] MEDS: D5W AND LACTATED RINGERS 1,000 ML IV SCH (12:56)
[2024-07-09] MEDS: ERGOCALCIFEROL 1250 MCG (50,000 UNITS) CAP PO SCH (13:49)
[2024-07-09] MEDS: SUCRALFATE 1 GM/10 ML UDC PO SCH (13:49)
[2024-07-09] MEDS: LIDOCAINE 2% 2 ML VIAL/AMP(20MG/ML) INFIL ONE (14:00)
--- NOTE | 2024-07-09 14:25 | Communication Note ---
Date of Service: July 09, 2024 abdominal wall trigger point injection informed consent, risk/benefit/alternatives discussed area cleansed with betadine then EtOH 3 discreet trigger points upper abdomen (left of epigastric then just distal to ribcage) identified and dry needled, then injected with ~1cc 2% lidocaine without epi in each. pt tolerated well. hemostasis spontaneous discussed following for change in nausea (in any direction) to gauge response continue management of FD with meds/attempting eating/etc
[2024-07-09 17:04] LABS: Calcium 8.3 mg/dl (8.6-10.3); Potassium 3.1 mmol/L (3.5-5.1)
[2024-07-09 17:10] LABS: BUN Creatinine Ratio 6.7 (10-20); Creatinine Clr Calc Pharmacy 134.6 ml/min
[2024-07-09] MEDS: POTASSIUM CHLORIDE / WTR 10 MEQ/100 ML PLCT IV ONE (18:14)
[2024-07-09] MEDS: CALCIUM CARBONATE 500 MG CHEWABLE TAB PO SCH (20:58)
[2024-07-09 21:38] LABS: Potassium 3.2 mmol/L (3.5-5.1)
[2024-07-09 21:44] LABS: BUN Creatinine Ratio 7.5 (10-20); Creatinine Clr Calc Pharmacy 114.3 ml/min
[2024-07-10 01:33] LABS: BUN Creatinine Ratio 7.8 (10-20); Creatinine Clr Calc Pharmacy 118.8 ml/min
[2024-07-10] MEDS: POTASSIUM CHLORIDE / WTR 10 MEQ/100 ML PLCT IV SCH (02:53)
[2024-07-10 08:33] LABS: Basophils # (auto) 0.02 K/uL (0.00-0.20); Basophils % (auto) 0.6 %; Eosinophils # (auto) 0.09 K/uL (0.00-0.50); Eosinophils % (auto) 2.7 %; Hematocrit (blood only) 30.6 % (37.0-47.0); Immature Granulocytes # (auto) 0.01 K/uL (0.01-0.20); Immature Granulocytes % (auto) 0.3 %; Lymphocytes # (auto) 1.37 K/uL (1.20-3.40); Lymphocytes % (auto) 40.7 %; Mean Corpuscular Hemoglobin 29.8 pg (25.0-34.0); Mean Corpuscular Hgb Conc 35.9 g/dL (32.0-36.0); Mean Corpuscular Volume 82.9 fL (80.0-100.0); Mean Platelet Volume 10.2 fL (9.4-12.4); Monocytes # (auto) 0.34 K/uL (0.11-0.59); Monocytes % (auto) 10.1 %; Neutrophils # (auto) 1.54 K/uL (1.40-6.50); Neutrophils % (auto) 45.6 %; Platelet Count 198 K/uL (130-400); RDW Coefficient of Variation 12.7 % (11.5-14.5); RDW Standard Deviation 38.2 fL (36.4-46.3); Red Blood Count 3.69 M/uL (4.20-5.40); White Blood Count 3.37 K/ul (4.8-10.8)
[2024-07-10 09:17] LABS: Albumin Globulin Ratio 1.9 (0.9-2); Albumin Level 3.2 gm/dl (3.4-5.0); Bilirubin,Total 0.4 mg/dl (0.2-1.0); Calcium 8.2 mg/dl (8.6-10.3); Creatinine Clr Calc Pharmacy 121.4 ml/min; Globulin 1.7 gm/dl (2.5-4.0); Magnesium 2.1 mg/dl (1.7-2.4); Potassium 3.9 mmol/L (3.5-5.1); Total Protein 4.9 gm/dl (6.0-8.3)
[2024-07-10] MEDS: CHOLECALCIFEROL 125 MCG (5,000 UNITS) TAB PO SCH (09:39)
[2024-07-10] MEDS: CYANOCOBALAMIN (B-12) 500 MCG TABLET PO SCH (09:39)
[2024-07-10] MEDS: PROMETHAZINE 6.25 MG/50.25 ML BAG IV STA (12:10)
--- NOTE | 2024-07-10 12:22 | Gastroenterology Progress Note ---
Date of Service July 10, 2024 Assessment & Plan (1) Unintentional weight loss: (2) Nausea & vomiting: Plan See above Admission and Anticipated Discharge Date Admission Date: July 07, 2024 Subjective Nausea vomiting, starvation ketosis Patient tolerating p.o. Complains of some increased nausea today though she is not vomiting. Hemoglobin A1c was normal. Continue supportive care. Antinauseants. No further GI procedures planned. We are waiting celiac testing and gastric biopsies. Expecting both to be negative. Physical Exam Physical Exam: Soft benign abdomen nontender Results & Data Results & Data Vital Signs (Past 12 Hours) Vital Signs Temp Pulse Resp BP Pulse Ox O2 Del Method 07/10/24 08:46 37.2 C 105 H 18 114/79 98 Room Air 07/10/24 00:45 36.8 C 86 20 105/71 97 Room Air PG Care Time/CCT Total # of Minutes Spent Total Time Spent with Patient: Total time spent is greater than 50% in coordination of care (as documented) at patient's floor/unit and/or counseling patient: Coding Level of Care Code 84170 SUB INP/OBS CARE 06/18MIN Diagnoses Unintentional weight loss R63.4 Nausea & vomiting R11.14 Vomiting type: bilious vomiting (2) Nausea & vomiting Vomiting type: bilious vomiting Qualified Code(s): R11.14 - Bilious vomiting
--- NOTE | 2024-07-10 13:29 | Hospitalist Progress Note ---
Date of Service July 10, 2024 Assessment & Plan (1) High anion gap metabolic acidosis: (2) Starvation ketoacidosis: (3) Nausea: (4) Acid reflux: (5) Anxiety disorder: (6) Malnutrition: Plan Monika is a 28 y/o female with PMHx of anxiety disorder here for evaluation of intractable nausea, weight loss, and malnutrition. Malnourishment #Starvation Ketosis #HAGMA Significant weight loss, electrolyte imbalances, and malnutrition admitted for management. No history of substance use. Ketosis without signs of hyperglycemia. Significant vitamin deficiencies as well. Monitor for signs of refeeding syndrome. BMP, Mg, Phos qAM Dietitian consult - appreciate recs Not tolerating IV thiamine-> convert to PO, replete lytes as indicated Continue with LR @125ml/hr #Nausea/Vomiting Etiology unclear - DDx including but not limited to post-viral gastroparesis, functional dyspepsia, GERD, gastritis. Moderate stool burden present. GI consulted - appreciate recs. EGD with gastritis, but otherwise unremarkable. S/p injection for abdominal wall trigger points 07/09. GI consult - appreciate recs IV Zofran, Reglan, Phenergan PRN Maalox ACHS, Voltaren QID for abdominal trigger points, cyproheptadine QID, Carafate QID IV Protonix and Pepcid Cavernoma: CT Head: 1.3 cm benign cavernoma. Recommend MRI - non-emergent FEN: advance diet as tolerated Code status: full code DVT ppx: SCDs Admission and Anticipated Discharge Date Admission Date: July 07, 2024 Supervising Physician Co-Signing Physician Notes I personally examined the patient and verified all garcia points of history and exam, discussed case, and agree with decision making with Dr Reina notes that yesterday evening after dinner nausea got significantly worse and has stayed that way since. vitals noted nad heent nc at mmm breathing unlabored no accessory muscles good effort skin no rashes no pallor or icterus intractable nausea, severe protein calorie malnutrition with massive weight loss, hypomag/phos/K/D, insufficient B12 -functional dyspepsia > phantom pain from somatovisceral reflex from trigger points - likely both -->FD - have been discussing eating/mind body/chronic psychology approach (discussed biofeedback is available locally even if true chronic disease/GI psychology is not); cyproheptadine (now at QID), bid pepcid/protonix for now (anticipate dropping to protonix only in a few days), ACHS mylanta, carafate in between); once able to get OTC add FDGuard (clare/peppermint) -->trigger points - voltarel gel, injected 2/15 - d/w pt that while it's often difficult to tell the contribution of somatovisceral pain initially, the fact that she had an otherwise unexplained but significant rise in her nausea last night suggests the trigger points probably are playing a significant role. given paucity of outpt providers who might be able to provide f/u trigger point injections if needed, will proactively ask for pain management referral so that if needed it is already in place continue IV fluids, start B12/vitamin D CT head findings almost certainly benign but will want to get MRI for clarity prior to dc Subjective Overall feeling similar to yesterday. S/p injections for abdominal wall trigger points /15 and some soreness at injection site. Was able to eat some with each meal yesterday-> chicken/rice for dinner. Review of Systems Review of Systems: As per above Physical Exam Physical Exam: Constitutional: well-appearing, no acute distress HEENT: NCAT, no conjunctival injection CV: regular rhythm, no murmur appreciated, extremities well-perfused Resp: CTABL, no wheezes/rales/rhonchi appreciated, no increased work of breathing GI: soft, nondistended, nontender MSK: no gross deformities appreciated Skin: warm, dry, no rash appreciated Neuro: alert, oriented, no focal neurologic deficit appreciated Results & Data Results & Data Vital Signs (Past 12 Hours) Vital Signs Temp Pulse Resp BP Pulse Ox O2 Del Method 07/10/24 08:46 37.2 C 105 H 18 114/79 98 Room Air Resident Activity Tracking Resident Involvement: Resident Care Provided Care Provided: Adult Hospital Medicine
[2024-07-10] MEDS: LACTATED RINGER'S 1,000 ML IV SCH (13:37)
--- NOTE | 2024-07-10 16:04 | Billing Data ---
Date of Service July 10, 2024 Coding Level of Care Code 56829 SUB INP/OBS CARE 3MIN
[2024-07-10] MEDS: SERTRALINE HCL 50 MG TABLET PO SCH (21:09)
[2024-07-11 08:17] LABS: Basophils # (auto) 0.03 K/uL (0.00-0.20); Basophils % (auto) 0.9 %; Eosinophils % (auto) 3.1 %; Hematocrit (blood only) 34.3 % (37.0-47.0); Hemoglobin 11.9 g/dl (12.0-16.0); Immature Granulocytes # (auto) 0.01 K/uL (0.01-0.20); Immature Granulocytes % (auto) 0.3 %; Lymphocytes # (auto) 1.37 K/uL (1.20-3.40); Lymphocytes % (auto) 42.4 %; Mean Corpuscular Hemoglobin 29.4 pg (25.0-34.0); Mean Corpuscular Hgb Conc 34.7 g/dL (32.0-36.0); Mean Corpuscular Volume 84.7 fL (80.0-100.0); Mean Platelet Volume 10.3 fL (9.4-12.4); Monocytes # (auto) 0.28 K/uL (0.11-0.59); Monocytes % (auto) 8.7 %; Neutrophils # (auto) 1.44 K/uL (1.40-6.50); Neutrophils % (auto) 44.6 %; Platelet Count 200 K/uL (130-400); RDW Coefficient of Variation 12.7 % (11.5-14.5); RDW Standard Deviation 38.5 fL (36.4-46.3); Red Blood Count 4.05 M/uL (4.20-5.40); White Blood Count 3.23 K/ul (4.8-10.8)
[2024-07-11 08:27] LABS: BUN Creatinine Ratio 9.1 (10-20); Calcium 8.8 mg/dl (8.6-10.3); Creatinine Clr Calc Pharmacy 110.4 ml/min; Phosphorus 2.7 mg/dl (2.5-4.9); Potassium 3.9 mmol/L (3.5-5.1)
[2024-07-11] MEDS: THIAMINE HCL 100 MG TAB PO SCH (09:11)
--- NOTE | 2024-07-11 09:41 | Hospitalist Progress Note ---
Date of Service July 11, 2024 Assessment & Plan (1) High anion gap metabolic acidosis: (2) Starvation ketoacidosis: (3) Nausea: (4) Acid reflux: (5) Anxiety disorder: (6) Malnutrition: Plan Monika is a 28 y/o female with PMHx of anxiety disorder here for evaluation of intractable nausea, weight loss, and malnutrition. 1) Malnourishment/Starvation Ketosis/HAGMA Significant weight loss, electrolyte imbalances, and malnutrition admitted for management. No history of substance use. Ketosis without signs of hyperglycemia. Significant vitamin deficiencies as well. Monitor for signs of refeeding syndrome. BMP, Mg, Phos qAM Dietitian consult - appreciate recs Not tolerating IV thiamine-> convert to PO, replete lytes as indicated Continue with LR @125ml/hr 2) Nausea/Vomiting Etiology unclear - DDx including but not limited to post-viral gastroparesis, functional dyspepsia, GERD, gastritis. Moderate stool burden present. GI consulted - appreciate recs. EGD with gastritis, but otherwise unremarkable. S/p injection for abdominal wall trigger points 07/09. GI consult - appreciate recs IV Zofran, Reglan, Phenergan PRN --> pt counseled to expt and find anti- nausea med that works for her Maalox ACHS, Voltaren QID for abdominal trigger points, cyproheptadine QID, Carafate QID IV Protonix and Pepcid 3) Cavernoma: CT Head: 1.3 cm benign cavernoma. Recommend MRI - non-emergent FENGI: advance diet as tolerated Code status: full code DVT ppx: SCDs Admission and Anticipated Discharge Date Admission Date: July 07, 2024 Supervising Physician Co-Signing Physician Notes I personally examined the patient and verified garcia points of history and exam, discussed case, and agree with decision making and plan documented by Dr. Bryson. Reviewed with patient longstanding difficulties to maintain p.o. intake following COVID-19 infection in January 2024. Patient states that she has had intractable nausea and resultant food aversion for months. Patient reports her weight prior to this was 135 pounds. She is currently working on a combination of Maalox and Carafate with different antiemetics to improve nutrition. She is working with nutrition in the hospital and is finding benefit to recommendations. Currently awaiting biopsy and celiac studies. Consider gastric emptying study and ova and parasite testing if not improving outpatient. Patient does feel that she may have some improvement as a result of her trigger point injections that were performed 07/09/2024. Patient denies any recent trauma. Her mother is an RN and is at bedside. Advised patient if she is able to maintain p.o., will consider discharge tomorrow, patient will be staying with her mother for the rest of the week and will be recommended to follow-up with PCP prior to returning to work. Subjective Overall feeling similar to yesterday. S/p injections for abdominal wall trigger points 07/09 and some soreness at injection site. Was able to eat some with each meal yesterday-> chicken/rice for dinner. Review of Systems Constitutional: + fatigue; no fever, no chills and no we akness Respiratory: no cough and no dyspnea Cardiovascular: no chest pain and no palpitations Gastrointestinal: + nausea; no abdominal pain, no vomiting , no cramping, no change in bowel habits, no constipation and no diarrhea/loose stools Genitourinary: no dysuria, no urinary frequency and no urinary urgency Neurologic: no tingling, no numbness and no headache(s) Physical Exam Constitutional: WD/WN, vitals as above Respiratory: normal respiratory effort, lungs clear to auscultation Cardiovascular: RRR, no murmur, no edema Gastrointestinal (Abdomen): normal bowel sounds, soft, nontender, no hepatosplenomegaly Results & Data Results & Data Vital Signs (Past 12 Hours) Vital Signs Temp Pulse Resp BP Pulse Ox O2 Del Method 07/11/24 07:35 36.5 C 100 H 16 112/76 96 Room Air
[2024-07-11 15:08] LABS: IgA Serum 71 mg/dL (47-310); Tis Trans IgA <1.0 U/mL
[2024-07-11] MEDS: PROMETHAZINE HCL 25 MG TAB PO STA (16:29)
[2024-07-12] MEDS: PROMETHAZINE HCL 25 MG TAB PO PRN (07:30)
[2024-07-12 07:39] LABS: Basophils # (auto) 0.03 K/uL (0.00-0.20); Basophils % (auto) 0.8 %; Eosinophils # (auto) 0.14 K/uL (0.00-0.50); Eosinophils % (auto) 3.6 %; Hematocrit (blood only) 34.4 % (37.0-47.0); Hemoglobin 12.2 g/dl (12.0-16.0); Lymphocytes # (auto) 1.51 K/uL (1.20-3.40); Lymphocytes % (auto) 38.7 %; Mean Corpuscular Hgb Conc 35.5 g/dL (32.0-36.0); Mean Corpuscular Volume 84.7 fL (80.0-100.0); Mean Platelet Volume 10.6 fL (9.4-12.4); Monocytes # (auto) 0.36 K/uL (0.11-0.59); Monocytes % (auto) 9.2 %; Neutrophils # (auto) 1.86 K/uL (1.40-6.50); Neutrophils % (auto) 47.7 %; Platelet Count 225 K/uL (130-400); RDW Coefficient of Variation 12.9 % (11.5-14.5); RDW Standard Deviation 38.3 fL (36.4-46.3); Red Blood Count 4.06 M/uL (4.20-5.40)
--- NOTE | 2024-07-12 07:45 | Discharge Summary ---
Date of Service July 12, 2024 Admission HPI Per Admitting Provider 28 y/o female with PMH of anxiety here due to malnutrition secondary to nausea an vomiting. Symptoms started after a Covid 19 on January. She had been having nausea most of the days, where she would tolerated crackles and michael ulices. She refers worsening symptoms in the last 2 weeks. States that had minimal to none PO intake in the last 2 weeks. Had lost 30 pounds on the last 3 months. Had tried Zofran, Phenergan and Reglan outpatient. Mom at bedside refers that the she got Iv fluid at home, placed by her mom which is a nurse. She refers having GERD symptoms since she's being a teenager no outpatient workup done. She does have noted abdominal pain / pressure that is worsen with hunger, that had been present since before the covid infection. Refers being constipated in the last 2 weeks. No difficult swallowing. Denied nay melena, or hematochezia. Denied any chills, fever, chest pain, dysuria, frequency, headaches or any other symptoms. Admission Exam Per Admitting Provider Physical Exam Constitutional: + thin and + malnourished; no acute dist ress and not lethargic ENMT: external ear and nose normal, oropharynx normal Respiratory: normal respiratory effort, lungs clear to auscultation Cardiovascular: RRR, no murmur, no edema Gastrointestinal (Abdomen): Inspection/Auscultation: abdomen normal to inspection and normal bowel sounds; abdomen not distended Percussion/Palpation: + abdomen tender (Epigastric) Musculoskeletal: no cyanosis or clubbing, extremities motor strength 5/5 Skin: no rashes, warm and dry Principal Diagnosis Functional dyspepsia Malnutrition, unintentional starvation ketoacidosis Discharge Exam Constitutional WD/WN, vitals as above Respiratory normal respiratory effort, lungs clear to auscultation Cardiovascular RRR, no murmur, no edema Gastrointestinal (Abdomen) normal bowel sounds, soft, nontender, no hepatosplenomegaly Psychiatric A+Ox3, euthymic affect Discharge Data Allergies Allergy/AdvReac Type Severity Reaction Status Date / Time bupropion AdvReac Mild Nausea Verified 07/08/24 15:31 Consultations 07/07/24 15:08 ED Decision to Admit Stat 07/07/24 18:16 Consult Gastroenterology Routine Procedures Performed Operation Date: 07/08/24 16:45 Actual Procedures p EGD Biopsy Cytology - Isidoro Mariscal MD Ordered Studies 07/07/24 11:34 CT abd pelvis IV con only Stat CT chest diagnostic w con Stat CT head/brain wo con Stat Hospital Course (1) High anion gap metabolic acidosis: (2) Starvation ketoacidosis: (3) Nausea: (4) Acid reflux: (5) Anxiety disorder: (6) Malnutrition: Plan Monika is a 28 y/o female with PMHx of anxiety disorder here for evaluation of intractable nausea, weight loss, and malnutrition. 1) Malnourishment/Starvation Ketosis/HAGMA Significant weight loss, electrolyte imbalances, and malnutrition admitted for management. No history of substance use. Ketosis without signs of hyperglycemia. Significant vitamin deficiencies as well. Monitor for signs of refeeding syndrome. BMP, Mg, Phos qAM Dietitian consult - appreciate recs Did not tolerate IV thiamine-> converted to PO, repleted electrolytes as indicated, during hospital stay 2) Nausea/Vomiting Etiology unclear - DDx including but not limited to post-viral gastroparesis, functional dyspepsia, GERD, gastritis. Moderate stool burden present. GI consulted - appreciate recs. EGD with gastritis, but otherwise unremarkable. S/p injection for abdominal wall trigger points 07/09. GI consult - appreciate recs Celiac unlikely: IgA, 71 (WNL); TTG IgA, < 1.0 (WNL); if pt was following a gluten-free diet? 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 Recommend MRI - non-emergent Total Time Total Time Spent Total Time Spent (In Minutes): 35 minutes Total Time Includes: Examination of the Patient, Discharge Planning, Medication Reconciliation and Communication With Other Providers Discharge Plan Discharge Items Patient Disposition: Home - Self-Care Reason For Visit: NAUSEA, WEIGHT LOSS Discharge Diagnosis: Functional dyspepsia Malnourishment, ketoacidosis Abdominal wall trigger points Condition on Discharge: Fair Activity: Resume your previous activity Non-emergency contact: Primary Care Provider Call non-emergency contact if: you have any medication questions and your symptoms worsen Follow-up/Referrals: Beronica Thrasher CRNP [Primary Care Provider] - 07/20/24 1:00 pm Diet: Regular Addtl Attending Provider Instructions: Your nausea appears to have been one or both (probably both) of two interrelated processes called (a) functional dyspepsia and (b) somatovisceral reflex from a bdominal wall trigger points. Both of these essentially end up as neurologic "tricks" that make your stomach tell your brain that you're sick even when there's not anything truly structurally wrong with your stomach. While not common, these aren't rare. Unfortunately we don't have a "magic wand" fix for these problems, but they are overall manageable Functional dyspepsia -this appears to be a big player in what is making you sick - especially with the way this started after first getting sick with a viral illness. The easiest way to understand functional dyspepsia is to look at it as a problem with the nerves that carry sensation from your stomach to your spinal cord creating a phantom sensation of nausea. Like we discussed, most people have met someone who had gastroparesis (a problem with the motor nerves of the stomach where the stomach doesn't empty properly); functional dyspepsia is basically the sensation version of the same basic process. While we don't entirely understand what causes it, in situations like yours (first getting sick with nausea after a viral illness) we generally think it's due to your immune system "going rogue" and attacking the sensory nerves from your stomach -FD is very much a "mind body" recovery - there's not any one strategy that works perfectly, and it usually takes a number of different approaches to make it "as much better as it can be" -one of the most basic things to manage it also is at the same time one of the hardest: eating in spite of how you feel. this is because in a mind way it tells your brain that you can put food in your stomach and while you'll feel sick you generally won't vomit; it also acts to desensitize your stomach so that it over time generates less nausea when you put food in it. this is obviously also a critically important part of keeping yourself out of troubles with malnutrition -on the "body" side of mind/body, medications can be helpful, but are definitely "educated trial and error." in addition to the medications we prescribed, we'd definitely recommend the over the counter herbal called "FD Guard" - it's a combination of clare and peppermint, and has been proven to be helpful in improving FD symptoms. -additionally on the "body" side, regular light cardiovascular exercise (~20 minutes of something that gets your heart rate up) can be helpful. while (much like a lot with FD) we're not entirely sure how it helps, one working thought is that cardiovascular exercise gets blood flowing through your whole body, which in turn may help your immune system more appropriately regulate itself -on the "mind" side-- some form of formal psychology assistance is hugely beneficial. "condition specific" psychology is harder to come by, but a GI Psychologist or at least a chronic pain/chronic disease psychologist would be ideal - in the y of online psychology appointments it might actually be easier to find someone to fill this role than it was in the past. Additionally, psychology techniques like biofeedback can be pretty helpful - locally "[facility]" (a psychology clinic on [facility]) does biofeedback -stress management is huge. while (as we discussed) FD is not simply a physical manifestation of stress/anxiety, we definitely see nausea flare when people are more stressed - so managing it (whether it's with psychology, exercise, social interaction, distractions, or medications) is garcia -unfortunately FD is usually a fairly long diagnosis - for most people it does get better over time, but typically over a decade. I highly doubt you'll feel the same way you do for a really long time, but it will take a while and a multifactorial approach to help you get to as better as you can be (and eventually back to good!) Abdominal wall trigger points -in addition to the FD, you had several trigger points on your upper abdominal wall that also may be a significant contributor to the nausea -while abdominal wall trigger points are really a muscular structure (and therefore should create a pain more like you pulled a rib or strained your abs), because the nerves that carry sensation from them go back into your spinal cord in the same area that your upper GI tract carries organ pain they instead will often "confuse" your brain or spinal cord into thinking that the problem is actually in your stomach - ie the muscular trigger points create a sensation of nausea. -with you, it's most likely that the trigger points formed after having had the FD going on for a while - often trigger points become a "secondary spinoff of misery" after an original, more truly GI problem has been going on. unfortunately though once they've started they can keep the nausea going in a vicious cycle -the trickiest part of figuring out how much the trigger points are causing your nausea is that even with treatment, people initially respond very differently. when we injected them, you did feel more nauseated later that night and for a while afterwards, which does make it plausible they're a significant player in causing the nausea, but really it will take time with ongoing treatment (the diclofenac gel and/or repeat trigger point injections) to truly see how things respond. While i'm probably being overly optimistic with this though, it's also possible that since we injected the trigger points on 07/09, we might still be in a "worse before they get better" phase and by a week or so later if the nausea really starts to fade then we'd also know they were a pretty big player Nutrition -unfortunately problems like FD and trigger points, because they come with so much nausea, can lead to people getting pretty malnourished - this was the case with you -continue to work with the dieticians on getting in enough nutrition and strategies to build your body back up -in addition to the better expertise from the dieticians, it can also be helpful to look at getting in enough nutrition as just "keeping a budget" -- while the dieticians will give you more accurate numbers, some simple math would suggest that your body needs about 1500 calories a day to "break even" -if you look at this sort of like a budget, you could imagine that if you needed $1500 a month for rent, the electric bill, and groceries that it would be critically important to not come up short - similarly, whether you get there by good nutrition or just soda, boost, and ice cream - it'll be important to ensure you get in enough total calories a day so that you stop the worsening of the malnutrition -i'd recommend downloading an james usually used for weight loss (like [employer], [employer], or [employer]) and track your calories each day - usually when people do "nutrition by feel" they come up way shorter than they realize. -start to play around with what "nutritional cheaters" sit the best - things like Boost allow you to get a lot of calories in 8oz of fluid (they make ones that are 250, 350 and 550 calories in 8oz) or a generous scoop of ice cream is typically about 100 calories. where these can be helpful then is that if you're having a really bad day and you see that you're going to really come up short on calories, you can shift to using "cheaters" to make sure that you at least get to the bare minimum (ie right now it's going to be more important to get in enough calories than the quality of the nutrients) RR Pending Studies at Discharge: Yes Studies:: EGD gastric biopsies, fecal calprotectin, fecal fat Stand-Alone Forms: My [facility] Twist, Work/School Release, Smoking Cessation Medications and DC Order Prescriptions: New cyproheptadine 4 mg tablet 4 mg PO QID PRN (Reason: allergy symptoms) Qty: 56 0RF alum-mag hydroxide-simeth [Maalox Maximum Strength] 400-400-40 mg/5 mL suspension 10 ml PO TID PRN (Reason: indigestion) Qty: 420 0RF pantoprazole 40 mg tablet,delayed release (DR/EC) 40 mg PO BID 14 Days Qty: 28 0RF famotidine 40 mg tablet 20 mg PO DAILY Qty: 10 0RF sucralfate 1 gram tablet 1 g PO ACHS Qty: 60 0RF promethazine 12.5 mg tablet 12.5 mg PO QID Qty: 60 0RF metoclopramide HCl 10 mg tablet 10 mg PO Q6H PRN (Reason: nausea and vomiting) Qty: 60 0RF ondansetron 4 mg tablet,disintegrating 4 mg PO QID PRN (Reason: nausea and vomiting) Qty: 60 0RF sertraline 25 mg tablet 25 mg PO DAILY Qty: 30 0RF Continued azelastine 137 mcg (0.1 %) spray,non-aerosol 2 spray intranasal BID PRN (Reason: nasal congestion) Qty: 30 11RF Rx Instructions: administer into each nostril ipratropium bromide 21 mcg (0.03 %) spray,non-aerosol 2 spray intranasal TID PRN (Reason: postnasal drip) Qty: 30 11RF Rx Instructions: administer into each nostril fluticasone propionate 50 mcg/actuation spray,suspension 2 spray intranasal DAILY Qty: 16 11RF Rx Instructions: needs a refill administer into each nostril Discontinued promethazine 25 mg tablet 25 mg PO TID PRN (Reason: nausea and vomiting) Qty: 30 2RF Discharge Orders: Discharge Order (Routine); Ordered 07/12/24 Ordered By: Puma Bryson Admission Data Admit Date/Time: 07/07/24 15:41 Attending Provider: Barbara Hayes Admit Provider: Renate Maradiaga Primary Care Provider: Beronica Thrasher Other Providers: Frandy Mcmillan; Isidoro Mariscal Other Interventions: Discharge Summary Assessment (RN) Last Done: 07/12/24 11:19 Supervising Physician Co-Signing Physician Notes I personally examined the patient and verified garcia points of history and exam, discussed case, and agree with decision making and plan documented by Dr. Bryson. Reviewed with patient longstanding difficulties to maintain p.o. intake following COVID-19 infection in January 2024. Patient states that she has had intractable nausea and resultant food aversion for months. She is currently working on a combination of Maalox and Carafate with different antiemetics to improve nutrition, multiple prescriptions were provided for patient so that she can find the right combination to work for her. During hospitalization, patient was working with nutrition and found benefit to nutritional education and recommendations. Currently awaiting biopsy and celiac studies. Can consider gastric emptying study and ova and parasite testing if not improving outpatient. Patient does feel that she may have some improvement as a result of her trigger point injections that were performed 07/09/2024, may benefit from repeat trigger point injections by pain management. Reviewed the importance of managing mental health and especially anxiety and stress during this time, patient felt confident being discharged to stay with her mother who is an RN for the next few days, and is recommended to follow-up with her PCP prior to returning to work.
[2024-07-12 07:47] LABS: BUN Creatinine Ratio 19.7 (10-20); Calcium 9.1 mg/dl (8.6-10.3); Potassium 3.8 mmol/L (3.5-5.1)
[2024-07-12 10:45] VITALS: BP 100/70; PULSE 106; RESP 16; TEMP 97.5; O2SAT 96
== END 2024-07-12 12:22 | disposition home or self-care (01) | DRG 922 ==
LOC: ED 11:10 → EDINP 15:41 → SUATTDRO 15:41 → 2N 18:16 → 3N 07-10 10:17